=== PATIENT | male | born 1985 | race Caucasian/White ===

== ENCOUNTER 2019-10-07 19:22 | Inpatient (IN) | payer OTHER ==
[2019-10-07] MEDS ORDERED: ASPIRIN 81 MG PO STA (19:48)
[2019-10-07] MEDS ORDERED: LABETALOL 5 MG/ML VIAL MDV IVP STA ×2 (19:49→20:22)
[2019-10-07] MEDS ORDERED: SODIUM CHLORIDE 0.9% 500 ML 500 ML IV ONE (19:49)
--- NOTE | 2019-10-07 19:56 | ED ---
Chest Pain HPI - General Chief Complaint: Chest Pain Stated Complaint: Shortness of Breath, Chest Pain Time Seen by Provider: 10/07/19 19:44 Source: patient, RN notes reviewed Mode of arrival: wheelchair Limitations: no limitations - History of Present Illness Initial Comments: This a 33-year-old male presents emergency room she went to chest pain or sh ortness of breath. Patient states his symptoms and worsening last 2-3 days. Patient is some/chest pain no back pain on the usual states is chronic back pain. Patient states that his exertional dyspnea. Patient also has some resting dyspnea. Patient has no prior lung disease. Patient does admit that he has uncontrolled hypertension he used to be on 3 blood pressure medications including lisinopril, amlodipine and chlorthalidone, patient states she has not taken these in a while. Patient has no other prior cardiac disease no history of hyperlipidemia. Patient denies any family heart history. Patient denies any nausea vomiting states he does have some mild abdominal discomfort that she just feels bloated. Patient - Related Data Home Medications Medication Instructions Recorded Confirmed HYDROcodone/APAP 5-325MG [[place] 1 tab PO BID PRN 10/07/19 10/07/19 5-325] Kratom 5 cap PO TID 10/07/19 10/07/19 Allergies Allergy/AdvReac Type Severity Reaction Status Date / Time No Known Allergies Allergy Verified 10/07/19 21:14 Review of Systems ROS Statement: Those systems with pertinent positive or pertinent negative responses have been documented in the HPI. ROS Other: All systems not noted in ROS Statement are negative. EKG Findings - EKG Comments: EKG Findings:: EKG performed at 19:49 sinus tachycardia rate of 1:15 [place] 148 QRS 104 QT/QTC 362/500 Past Medical History Past Medical History: Hypertension History of Any Multi-Drug Resistant Organisms: None Reported Past Surgical History: Back Surgery, Orthopedic Surgery Additional Past Surgical History / Comment(s): hand Past Psychological History: PTSD Smoking Status: Current every day smoker Past Alcohol Use History: Abuse, Daily Past Drug Use History: None Reported General Exam Limitations: no limitations General appearance: alert, in no apparent distress Head exam: Present: atraumatic, normocephalic, normal inspection Eye exam: Present: normal appearance, PERRL, EOMI. Absent: scleral icterus, conjunctival injection, periorbital swelling ENT exam: Present: normal exam, normal oropharynx, mucous membranes moist Neck exam: Present: normal inspection, full ROM. Absent: tenderness, meningismus, lymphadenopathy Respiratory exam: Present: normal lung sounds bilaterally. Absent: respiratory distress, wheezes, rales, rhonchi, stridor Cardiovascular Exam: Present: normal rhythm, tachycardia, normal heart sounds. Absent: systolic murmur, diastolic murmur, rubs, gallop, clicks GI/Abdominal exam: Present: soft, normal bowel sounds. Absent: distended, tenderness, guarding, rebound, rigid Neurological exam: Present: alert, oriented X3, CN II-XII intact Skin exam: Present: warm, dry, intact, normal color. Absent: rash Course Vital Signs 10/07/19 10/07/19 10/07/19 19:36 19:53 20:00 Temperature 97.8 F Pulse Rate 114 H 118 H Respiratory 24 28 H Rate Blood Pressure 280/160 229/162 O2 Sat by Pulse 97 Oximetry 10/07/19 10/07/19 10/07/19 20:02 20:07 20:15 Temperature Pulse Rate 96 91 88 Respiratory 17 Rate Blood Pressure 237/157 232/161 218/164 O2 Sat by Pulse 98 99 Oximetry 10/07/19 10/07/19 10/07/19 20:22 20:25 21:00 Temperature Pulse Rate 89 87 89 Respiratory 18 16 Rate Blood Pressure 222/65 198/151 188/139 O2 Sat by Pulse 98 96 Oximetry 10/07/19 21:45 Temperature Pulse Rate 98 Respiratory 18 Rate Blood Pressure 197/137 O2 Sat by Pulse 98 Oximetry Critical Care Time Critical Care Time: Yes Total Critical Care Time: 35 Critical Care Time: Total of 35 minutes of critical care time were used to initially evaluated patient, reviewed by it, past medical history, ordered labs, EKG, x-ray, chest CT. Patient found to be in hypertensive emergency. Initial blood pressure control was ordered with labetalol push 20 mg, , pain control ordered. An EKG did not reveal any acute changes some chronic changes noted. Patient was sent for CT prior to lab work. Patient found to be in acute renal failure mostly related to supplemental use, uncontrolled hypertension. Patient was started labetalol drip. Patient case discussed with addiction therapist ICU boarder machine who agrees for admission case discussed with the admitting case picker Dr. cavazos. Patient will be admitted with cardiology consult, neurology consult. Disposition Clinical Impression: Chest pain, Acute renal failure, Hypertensive emergency, Acute CHF, Hyponatremia, Hypokalemia, NSTEMI (non-ST elevated myocardial infarction) Disposition: ADMITTED IP TO THIS HOSP Condition: Serious Referrals: None,Stated [Primary Care Provider] - 1-2 days
[2019-10-07] MEDS ORDERED: ONDANSETRON 4 MG/2 ML VIAL IVP STA (20:26)
[2019-10-07] MEDS ORDERED: MORPHINE SULFATE 4 MG/ML SYRINGE IVP STA (20:26)
[2019-10-07 20:29] LABS: Basophils % (A) 0 %; Eosinophils # (A) 0.1 k/uL (0-0.7); Eosinophils % (A) 1 %; HCT 35.7 % (39.0-53.0); HGB 12.6 gm/dL (13.0-17.5); Lymphocytes # (A) 0.8 k/uL (1.0-4.8); Lymphocytes % (A) 6 %; MCH 30.1 pg (25.0-35.0); MCHC 35.3 g/dL (31.0-37.0); MCV 85.3 fL (80.0-100.0); Mean Platelet Volume 8.3; Monocytes # (A) 0.6 k/uL (0-1.0); Monocytes % (A) 4 %; Neutrophils % (A) 88 %; Platelet Count 122 k/uL (150-450); RBC 4.19 m/uL (4.30-5.90); RDW 14.9 % (11.5-15.5); WBC 13.6 k/uL (3.8-10.6)
[2019-10-07 20:31] LABS: Albumin 3.6 g/dL (3.5-5.0); Calcium 8.6 mg/dL (8.4-10.2); Magnesium 2.1 mg/dL (1.6-2.3); Potassium 2.9 mmol/L (3.5-5.1); Total Bilirubin 1.1 mg/dL (0.2-1.3); Total Protein 6.1 g/dL (6.3-8.2)
[2019-10-07 20:43] LABS: INR 0.9 (<1.2); Partial Thromboplastin Time 23.6 sec (22.0-30.0); Prothrombin Time 9.7 sec (9.0-12.0)
[2019-10-07 20:46] LABS: D-Dimer 2.36 mg/L FEU (<0.60)
--- NOTE | 2019-10-07 20:47 | XR ---
EXAMINATION TYPE: XR chest 1V portable DATE OF EXAM: 10/07/2019 COMPARISON: 08/19/2010 HISTORY: Chest pain and short of breath TECHNIQUE: FINDINGS: Heart is enlarged. There is some pulmonary interstitial edema. There are chest leads. Bony thorax is intact. IMPRESSION: There is new pulmonary interstitial edema compared to old exam and could be acute congest lilia heart failure. Heart is increased compared to old exam.
--- NOTE | 2019-10-07 21:09 | CT ---
EXAMINATION TYPE: CT chest angio for PE DATE OF EXAM: 10/07/2019 COMPARISON: None HISTORY: UPPER BACK AND CHEST PAIN CT DLP: 659.2 mGycm Automated exposure control for dose reduction was used. CONTRAST: Performed with IV Contrast, patient injected with 80 mL of Isovue 370. There are 3-D post processed images. There are mild to moderate bilateral pleural effusions. Heart is enlarged. There is mild pulmonary in terstitial edema with groundglass interstitial density. There is no pericardial effusion. There are n o hilar masses. There is no mediastinal adenopathy. There is normal contrast opacification of the pul monary arteries. There are no filling defects. There are small calcified splenic granulomata. Thoraci c aorta appears normal. There is no aneurysm or dissection. The bony thorax is intact. IMPRESSION: No evidence of pulmonary embolism. Cardiomegaly with pleural effusions and pulmonary interstitial maximiliano ma probably due to congestive heart failure.
[2019-10-07] MEDS ORDERED: NITROGLYCERIN-D5W PMX 50 MG in DEXTROSE/WATER 1 250ML.BAG IV ONE (21:16)
[2019-10-07] MEDS ORDERED: FUROSEMIDE 10 MG/ML 2 ML VIAL IV ONE (21:17)
[2019-10-07] MEDS ORDERED: LABETALOL 200 MG in SODIUM CHLORIDE 0.9% 160 ML IV ONE (21:55)
[2019-10-07] MEDS ORDERED: POTASSIUM CHLORIDE ER 20 MEQ TAB.ER PO STA (22:01)
[2019-10-07] MEDS ORDERED: ACETAMINOPHEN TAB 325 MG TAB PO PRN (22:02)
[2019-10-07] MEDS ORDERED: NALOXONE 0.4 MG/ML 1 ML VIAL IV PRN (22:02)
[2019-10-07] MEDS ORDERED: HEPARIN SODIUM,PORCINE 5,000 UNIT/ML 1 ML VIAL IV PRN (22:05)
[2019-10-07] MEDS ORDERED: HEPARIN SODIUM,PORCINE 5,000 UNIT/ML 1 ML VIAL IV ONE (22:05)
[2019-10-07] MEDS ORDERED: HEPARIN SOD,PORK IN 0.45% NACL 25,000 UNIT in 0.45% NACL 1 250ML.BAG IV SCH (22:15)
[2019-10-07 23:08] LABS: Glucose,Whole Blood 108 mg/dL (75-99)
--- NOTE | 2019-10-08 00:26 | US ---
EXAMINATION TYPE: US renals and bladder DATE OF EXAM: 10/08/2019 COMPARISON: NONE CLINICAL HISTORY: dianna. DIANNA, hypertension. EXAM MEASUREMENTS: Right Kidney: 11.3 x 5.4 x 5.4 cm Left Kidney: 11.8 x 5.9 x 5.2 cm Right Kidney: Appears hyperechoic and to have a lobulated contour. Anechoic area seen medially-minima l hydro. Left Kidney: Appears slightly hyperechoic. Anechoic area seen measurin.8 x 1.0 x 0.6 cm. Renal p annelise appears prominent. Bladder: Appears anechoic. Bilateral Jets seen: Left jet seen during observation of bladder. *Incidental findings: Gallbladder appears distended measuring 10.2 cm in length and 4.9 cm in width. Internal echoes are seen. Wall measures 2.4 mm. There appears to be hyperechoic foci scattered throughout the spleen. IMPRESSION: There is mild right-sided hydronephrosis. There is dilated gallbladder that is suggestive of cholecys titis. Left side ureteral jet is seen. No right-sided ureteral jet was seen during the exam. Right-sided marianna al obstruction is possible.
[2019-10-08 03:58] LABS: Ferritin 526.1 ng/mL (22.0-322.0)
[2019-10-08 04:36] LABS: Basophils % (A) 0 %; Eosinophils # (A) 0.2 k/uL (0-0.7); Eosinophils % (A) 2 %; HCT 29.7 % (39.0-53.0); HGB 10.5 gm/dL (13.0-17.5); Lymphocytes # (A) 1.3 k/uL (1.0-4.8); Lymphocytes % (A) 15 %; MCH 31.1 pg (25.0-35.0); MCHC 35.5 g/dL (31.0-37.0); MCV 87.6 fL (80.0-100.0); Mean Platelet Volume 8.5; Monocytes # (A) 0.4 k/uL (0-1.0); Monocytes % (A) 5 %; Neutrophils # (A) 6.3 k/uL (1.3-7.7); Neutrophils % (A) 77 %; RBC 3.39 m/uL (4.30-5.90); RDW 14.8 % (11.5-15.5); WBC 8.2 k/uL (3.8-10.6)
[2019-10-08 05:08] LABS: Albumin 2.8 g/dL (3.5-5.0); Calcium 8.2 mg/dL (8.4-10.2); Magnesium 2.2 mg/dL (1.6-2.3); Total Bilirubin 0.7 mg/dL (0.2-1.3)
[2019-10-08 05:12] LABS: Platelet Count 91 k/uL (150-450)
[2019-10-08] MEDS ORDERED: Potassium Replacement Protocol 1 EACH MISC MISCELLANE PRN (06:07)
[2019-10-08] MEDS: POTASSIUM CHLORIDE ER 20 MEQ TAB.ER PO SCH (07:13)
[2019-10-08] MEDS: amLODIPine 10 MG TAB PO SCH (08:29)
[2019-10-08] MEDS: METOPROLOL TARTRATE 25 MG TAB PO SCH ×2 (08:29→20:29)
[2019-10-08] MEDS: PANTOPRAZOLE 40 MG/10 ML VIAL IV SCH (08:29)
[2019-10-08] MEDS: SODIUM CHLORIDE 0.45% 1,000 ML IV SCH (08:30)
[2019-10-08] MEDS: LABETALOL 200 MG in SODIUM CHLORIDE 0.9% 160 ML IV SCH ×2 (08:56→11:10)
[2019-10-08] MEDS: hydrALAZINE HCL 50 MG TAB PO SCH ×3 (09:40→23:34)
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
[2019-10-08 10:38] LABS: Glucose,Whole Blood 105 mg/dL (75-99)
[2019-10-08] MEDS ORDERED: POTASSIUM CHLORIDE ER 10 MEQ TAB.ER.PRT PO STA (10:43)
--- NOTE | 2019-10-08 11:13 | P.NPCON ---
History of Present Illness - Reason for Consult accelerated hypertension - History of Present Illness Reason for presentation: Acute kidney injury History of present illness: Patient is a 33-year-old male seen in renal consultation for acute kidney injury. Patient's creatinine was 3.18 on admission and is stable to 3.15 today. Unknown baseline renal function. Patient denies any personal history of kidney disease. Patient states he does have high blood pressure and was maintained on 3 antihypertensives which she stopped taking about 3 months ago. Patient states he hasn't seen a physician in the last few months either. He presented to the hospital with worsening shortness of breath going on for the last few days. He denies any edema. Denies vomiting or diarrhea. He denies hematuria but states urine has been dark. Patient's blood pressure on admission was over 200 systolic. He was maintained on labetalol drip. Labetalol drip has now been discontinued. He is maintained on oral and amlodipine, hydralazine and metoprolol. he did receive IV contrast dye on October [address] of the chest revealed no evidence of pulmonary embolism. Kidney ultrasound revealed normal sized kidneys without any evidence of hydronephrosis. denies chest pain. He does admit to taking Motrin 2-3 tablets daily for the last few months for his low back pain. No history of diabetes. Denies family history of renal disease. Vital signs are stable. General: The patient appeared well nourished and normally developed. HEENT: Head exam is unremarkable. Neck is without jugular venous distension. LUNGS: Lungs are clear to auscultation and percussion. Breath sounds decreased. HEART: Rate and Rhythm are regular. ABDOMEN: Abdominal exam reveals normal bowel sounds. Non-tender and non- distended. EXTREMITITES: No clubbing, cyanosis, or edema. Past Medical History Past Medical History: Hypertension History of Any Multi-Drug Resistant Organisms: None Reported Past Surgical History: Back Surgery, Orthopedic Surgery Additional Past Surgical History / Comment(s): hand Past Anesthesia/Blood Transfusion Reactions: No Reported Reaction Past Psychological History: PTSD Smoking Status: Current every day smoker Past Alcohol Use History: Abuse, Daily Past Drug Use History: None Reported - Past Family History Father Family Medical History: CVA/TIA, Hypertension Medications and Allergies Home Medications Medication Instructions Recorded Confirmed Type HYDROcodone/APAP 5-325MG [[place] 1 tab PO BID PRN 10/07/19 10/07/19 History 5-325] Kratom 5 cap PO TID 10/07/19 10/07/19 History Allergies Allergy/AdvReac Type Severity Reaction Status Date / Time No Known Allergies Allergy Verified 10/07/19 21:14 Physical Exam Vitals: Vital Signs Temp Pulse Resp BP Pulse Ox 10/08/19 10:30 125/74 10/08/19 10:00 70 21 143/94 95 10/08/19 09:30 73 16 159/99 95 10/08/19 09:00 76 20 160/101 93 L 10/08/19 08:30 81 21 174/118 98 10/08/19 08:00 98.1 F 72 17 157/106 98 10/08/19 07:30 70 19 159/111 98 10/08/19 07:00 74 16 143/86 98 10/08/19 06:30 65 18 144/95 95 10/08/19 06:00 64 17 157/103 95 10/08/19 05:30 70 21 146/92 97 10/08/19 05:00 66 18 151/97 96 10/08/19 04:30 67 18 151/107 95 10/08/19 04:00 97.8 F 73 18 152/110 97 10/08/19 03:30 68 16 143/90 97 10/08/19 03:00 71 18 147/103 96 10/08/19 02:30 71 20 138/96 96 10/08/19 02:00 68 15 144/98 95 10/08/19 01:30 67 17 154/109 94 L 10/08/19 01:00 70 16 145/101 96 10/08/19 00:30 67 17 140/97 98 10/08/19 00:00 72 14 140/97 96 10/07/19 23:30 70 16 95 10/07/19 23:10 97.4 F L 74 13 170/110 91 L 10/07/19 22:44 98.2 F 85 16 172/122 94 L 10/07/19 22:35 85 16 172/122 94 L 10/07/19 22:25 98.2 F 93 18 190/132 94 L 10/07/19 22:00 96 18 202/146 96 10/07/19 21:45 98 18 197/137 98 10/07/19 21:00 89 16 188/139 96 10/07/19 20:25 87 18 198/151 98 10/07/19 20:22 89 222/65 10/07/19 20:15 88 17 218/164 99 10/07/19 20:07 91 232/161 98 10/07/19 20:02 96 237/157 10/07/19 20:00 229/162 10/07/19 19:53 118 H 28 H 280/160 10/07/19 19:36 97.8 F 114 H 24 97 Intake and Output 10/07/19 10/08/19 10/08/19 22:59 06:59 14:59 Intake Total 10 63.129 308 Output Total 1100 750 Balance 10 -1036.871 -442 Intake: IV 10 150 Invasive Line 1 10 Sodium Chloride 0.45% 1, 150 000 ml @ 75 mls/hr IV . [id number] [facility] Rx#:[id number] Intake, IV Titration 63.129 158 Amount Heparin Sod,Pork in 0.45% 63.129 NaCl 25,000 unit In 0.45 % NaCl 1 250ml.bag @ 9.18 UNITS/KG/HR 9.994 mls/hr IV .Q24H [facility] Rx#: [id number] Labetalol 200 mg In 158 Sodium Chloride 0.9% 160 ml @ 2 MG/MIN 120 mls/hr IV .Q1H40M [facility] Rx#: [id number] Output: Urine 1100 750 Other: Voiding Method Urinal # Voids 0 Weight 108.862 kg 110 kg Results - Lab Results Most recent lab results Calcium 8.2 mg/dL (8.4-10.2) L 10/08/19 03:59 Magnesium 2.2 mg/dL (1.6-2.3) 10/08/19 03:59 10/08/19 03:59 10/08/19 03:59 Assessment and Plan Plan: assessment: 1. Hypertensive emergency. Better controlled. 2. Hypokalemia from diuresis. 3. Hyponatremia. Slightly hypervolemic. 4. History of hypertension. Noncompliant with his home medications for the last 3 months. 5. Acute kidney injury secondary to nephrosclerosis and nonsteroidal use. He also received IV contrast dye on October 06. No schistocytes noted on differential. Creatinine 3.15 today. Unknown baseline renal function. No hydronephrosis noted on kidney ultrasound. Plan: Decrease normal saline to 50 mL an hour. Potassium being replaced. Check urinalysis. Check LDH and haptoglobin. Check renin and aldosterone levels, and plasma metanephrines. Check renal ultrasound with Doppler. Follow-up CT of the abdomen and pelvis. Follow-up echocardiogram. Case discussed with the attending psychiatrist. Thank you for the consultation. I will continue to follow the patient with you during his hospital stay.
--- NOTE | 2019-10-08 11:39 | P.CNPUL ---
History of Present Illness Consult date: 10/08/19 Reason for consult: dyspnea Chief complaint: Acute hypertensive emergency History of present illness: This is a 33-year-old male patient who was admitted yesterday to the ICU via emergency because of an acute hypertensive emergency. The patient is known to have long history of hypertension, and he hasn't been compliant his blood pressure medication. He states that his been placed on today's blood pressure medication and most recent BP medication has been a ALEISHA inhibitor, lisinopril, which he quit taking approximately 6 weeks ago. Note that the patient also drinks excess amount of caffeinated beverages including those with energy drinks which are high in sugar and caffeine content and he drinks at least 7 or 8 out of them on a daily basis. He also drinks coffee. He denies substance abuse. Denies having to use of any cocaine or any other street drugs. The patient came into the emergency department yesterday complaining of progressive worsening shortness of breath over a few days duration in addition to generalized weakness and minimal cough. He also had some mild chest discomfort centrally where the pain was around 2 out of 10 in severity radiating to the back and the neck area and he was also having some headaches and numbness in his upper extremities bilaterally without having any weakness. No blurred vision. No slurred speech. No focal neurological deficits. He had no increased swelling in lower extremities. No previous history of DVT or pulmonary embolism. He does not smoke. He chews tobacco. His initial blood pressure in the ED was 280/160 and he was initially placed on nitroglycerin drip. After I was contacted, I recommended labetalol drip that was utilized throughout the night and it was discontinued approximately 11 PM yesterday in the emergency department as the p atient's blood pressure responded nicely. Note that he had significant abnormalities in his blood work which included an abnormal renal function with a creatinine of 3.15, unsure if this is an acute or chronic. His CBC showed a component of thrombocytopenia with a platelet further dropped down to 91 this morning with a hemoglobin of 10.5 and a white cell count of 8.2K. The patient's proBNP level was 20,800. The patient had a CPK of 2155. LFTs have been within normal limits. D-dimer was at 2.3. Chest x-ray was consistent with CHF. EKG showed a sinus tachycardia with LVH. Based on all this, there was a concern of aortic dissection. The patient unfortunately was given a CT angiogram that showed no evidence of any dissection and aneurysm. There was better pleural effusion and interstitial edema consistent with CHF in addition to some cardiomegaly. There was also some questionable mild right-sided hydronephrosis on the ultrasound of the kidneys that showed no right-sided ureteral jets and there was also dilated gallbladder suggestive of cholecystitis. Nevertheless, the patient does not have any right upper quadrant pain, does not have any abnormalities in liver function tests. Based on the intake of contrast, I give the patient half-normal saline at rate of 75 mL an hour. Earlier this morning, I started the patient on Norvasc 10 mg and metoprolol 25 mg twice a day. C ardiology further so the patient and added hydralazine 50 mg every 8 hours. He is labetalol drip was again discontinued. Overall, is feeling better. Echocardiogram was done this morning and showed severe concentric LVH. LV function is been essentially within normal limits. No significant valvular abnormalities noted. No fever. No chills. No other complaints otherwise been altered mentation. Review of Systems Constitutional: Reports fatigue, Reports weakness Eyes: denies as per HPI, denies blurred vision, denies bulging eye, denies decreased vision, denies diplopia, denies discharge, denies dry eye, denies irritation, denies itching, denies pain, denies photophobia, denies loss of peripheral vision, denies loss of vision, denies tunnel vision/blind spots Ears: deny: decreased hearing, ear discharge, earache, tinnitus Ears, nose, mouth and throat: Denies headache, Denies sore throat Breasts: absent: as per HPI, gynecomastia Cardiovascular: Reports chest pain, Reports decreased exercise tolerance Respiratory: Reports as per HPI Gastrointestinal: Reports as per HPI Genitourinary: Reports as per HPI Musculoskeletal: Reports as per HPI Musculoskeletal: absent: ankle pain, ankle stiffness, ankle swelling Integumentary: Reports as per HPI Neurological: Reports as per HPI, Reports weakness Psychiatric: Reports as per HPI Endocrine: Reports as per HPI Hematologic/Lymphatic: Reports as per HPI Allergic/Immunologic: Reports as per HPI Past Medical History Past Medical History: Hypertension History of Any Multi-Drug Resistant Organisms: None Reported Past Surgical History: Back Surgery, Orthopedic Surgery Additional Past Surgical History / Comment(s): hand Past Anesthesia/Blood Transfusion Reactions: No Reported Reaction Past Psychological History: PTSD Smoking Status: Current every day smoker Past Alcohol Use History: Abuse, Daily Past Drug Use History: None Reported - Past Family History Father Family Medical History: CVA/TIA, Hypertension Medications and Allergies Home Medications Medication Instructions Recorded Confirmed Type HYDROcodone/APAP 5-325MG [[place] 1 tab PO BID PRN 10/07/19 10/07/19 History 5-325] Kratom 5 cap PO TID 10/07/19 10/07/19 History Allergies Allergy/AdvReac Type Severity Reaction Status Date / Time No Known Allergies Allergy Verified 10/07/19 21:14 Physical Exam Vitals: Vital Signs Temp Pulse Resp BP Pulse Ox 10/08/19 11:00 74 16 125/74 97 10/08/19 10:30 125/74 10/08/19 10:00 70 21 143/94 95 10/08/19 09:30 73 16 159/99 95 10/08/19 09:00 76 20 160/101 93 L 10/08/19 08:30 81 21 174/118 98 10/08/19 08:00 98.1 F 72 17 157/106 98 10/08/19 07:30 70 19 159/111 98 10/08/19 07:00 74 16 143/86 98 10/08/19 06:30 65 18 144/95 95 10/08/19 06:00 64 17 157/103 95 10/08/19 05:30 70 21 146/92 97 10/08/19 05:00 66 18 151/97 96 10/08/19 04:30 67 18 151/107 95 10/08/19 04:00 97.8 F 73 18 152/110 97 10/08/19 03:30 68 16 143/90 97 10/08/19 03:00 71 18 147/103 96 10/08/19 02:30 71 20 138/96 96 10/08/19 02:00 68 15 144/98 95 10/08/19 01:30 67 17 154/109 94 L 10/08/19 01:00 70 16 145/101 96 10/08/19 00:30 67 17 140/97 98 10/08/19 00:00 72 14 140/97 96 10/07/19 23:30 70 16 95 10/07/19 23:10 97.4 F L 74 13 170/110 91 L 10/07/19 22:44 98.2 F 85 16 172/122 94 L 10/07/19 22:35 85 16 172/122 94 L 10/07/19 22:25 98.2 F 93 18 190/132 94 L 10/07/19 22:00 96 18 202/146 96 10/07/19 21:45 98 18 197/137 98 10/07/19 21:00 89 16 188/139 96 10/07/19 20:25 87 18 198/151 98 10/07/19 20:22 89 222/65 10/07/19 20:15 88 17 218/164 99 10/07/19 20:07 91 232/161 98 10/07/19 20:02 96 237/157 10/07/19 20:00 229/162 10/07/19 19:53 118 H 28 H 280/160 10/07/19 19:36 97.8 F 114 H 24 97 Intake and Output 10/07/19 10/08/19 10/08/19 22:59 06:59 14:59 Intake Total 10 63.129 458 Output Total 1100 750 Balance 10 -1036.871 -292 Intake: IV 10 300 Invasive Line 1 10 Sodium Chloride 0.45% 1, 300 000 ml @ 75 mls/hr IV . [id number] [facility] Rx#:[id number] Intake, IV Titration 63.129 158 Amount Heparin Sod,Pork in 0.45% 63.129 NaCl 25,000 unit In 0.45 % NaCl 1 250ml.bag @ 9.18 UNITS/KG/HR 9.994 mls/hr IV .Q24H [facility] Rx#: [id number] Labetalol 200 mg In 158 Sodium Chloride 0.9% 160 ml @ 2 MG/MIN 120 mls/hr IV .Q1H40M [facility] Rx#: [id number] Output: Urine 1100 750 Other: Voiding Method Urinal # Voids 0 Weight 108.862 kg 110 kg MThe patient appeared well nourished and normally developed. Vital signs as documented. Head exam is unremarkable. No scleral icterus or corneal arcus no cristy. Neck is without jugular venous distension, thyromegaly, or carotid bruits. Carotid upstrokes are brisk bilaterally. Lungs are clear to auscultation and percussion. Cardiac exam reveals the PMI to be normally sized and situated. Rhythm is regular. First and second heart sounds normal. The second heart sound is split and there is an S3 gallop. No murmurs, rubs or gallops. Abdominal exam reveals normal bowel sounds, no masses, no organomegaly and no aortic enlargement. Extremities are nonedematous and both femoral and pedal pulses are normal.Examination of the skin revealed no evidence of significant rashes, suspicious appearing nevi or other concerning lesions. Neurologically patient i s awake and alert and there is no focal neurological deficits. Results - Laboratory Findings CBC and BMP: 10/08/19 03:59 10/08/19 03:59 PT/INR, D-dimer PT 9.7 sec (9.0-12.0) 10/07/19 20:01 INR 0.9 (<1.2) 10/07/19 20:01 D-Dimer 2.36 mg/L FEU (<0.60) H 10/07/19 20:01 Abnormal lab findings: Abnormal Labs 10/07/19 10/07/19 10/07/19 20:01 20:01 20:01 WBC 13.6 H RBC 4.19 L Hgb 12.6 L Hct 35.7 L Plt Count 122 L Neutrophils # 12.0 H Lymphocytes # 0.8 L D-Dimer 2.36 H Sodium 127 L Potassium 2.9 L Chloride 94 L Carbon Dioxide 20 L BUN 55 H Creatinine 3.19 H Glucose 113 H POC Glucose (mg/dL) Calcium Ferritin AST 63 H ALT 72 H Lactate Dehydrogenase Creatine Kinase 2155 H* Troponin I C-Reactive Protein Total Protein 6.1 L Albumin HDL Cholesterol 10/07/19 10/07/19 10/07/19 20:01 20:01 23:07 WBC RBC Hgb Hct Plt Count Neutrophils # Lymphocytes # D-Dimer Sodium Potassium Chloride Carbon Dioxide BUN Creatinine Glucose POC Glucose (mg/dL) 108 H Calcium Ferritin 526.1 H AST ALT Lactate Dehydrogenase 2142 H Creatine Kinase Troponin I 0.605 H* C-Reactive Protein 18.0 H Total Protein Albumin HDL Cholesterol 10/08/19 10/08/19 10/08/19 03:59 03:59 03:59 WBC RBC 3.39 L Hgb 10.5 L Hct 29.7 L Plt Count 91 L Neutrophils # Lymphocytes # D-Dimer Sodium 128 L Potassium 3.0 L Chloride 96 L Carbon Dioxide BUN 55 H Creatinine 3.15 H Glucose POC Glucose (mg/dL) Calcium 8.2 L Ferritin AST ALT 58 H Lactate Dehydrogenase Creatine Kinase 1159 H* Troponin I 0.590 H* C-Reactive Protein Total Protein 5.0 L Albumin 2.8 L HDL Cholesterol 38 L 10/08/19 10:36 WBC RBC Hgb Hct Plt Count Neutrophils # Lymphocytes # D-Dimer Sodium Potassium Chloride Carbon Dioxide BUN Creatinine Glucose POC Glucose (mg/dL) 105 H Calcium Ferritin AST ALT Lactate Dehydrogenase Creatine Kinase Troponin I C-Reactive Protein Total Protein Albumin HDL Cholesterol - Diagnostic Findings Chest x-ray: image reviewed Assessment and Plan Plan: 1 acute hypertensive emergency in a patient with known history of hypertension 2 acute chest pain, with limited troponin leak, likely secondary to hypertensive emergency. I highly doubt a underlying non-STEMI. 3 acute diastolic heart failure related to hypertensive heart disease and the patient has severe concentric left ventricular hypertrophy. ProBNP level at time of admission was above 20,000 and the patient had small bilateral pleural effusion and interstitial edema. This is related to above. 4 acute kidney injury secondary to hypertensive emergency. Doubt microangiopathy although this remains a concern that the patient has developed also some anemia and thrombocytopenia in addition to an acute kidney injury. No altered mentation. No fever. No schistocytes on the peripheral smear. Watch for contrast nephropathy as the patient was given a CT angiogram and aortic dissection was ruled out. 5 thrombocytopenia and the plated count is down to 91 6 hyponatremia 7 for compliance to blood pressure medications 8 questionable right-sided hydronephrosis 9 asymptomatic gallbladder distention without evidence of any cholecystitis 10 chronic back pain 11 excessive utilization of caffeinated beverages Plan Discontinue the labetalol drip BP control with a combination of Norvasc, metoprolol and hydralazine Check ultrasound the kidneys with vascular Dopplers of the renal arteries rule out renal artery stenosis Check metanephrine levels and his serum in addition to renin and aldosterone levels Check final echocardiogram report Monitor the renal function Continue gentle hydration with half-normal saline at the rate of 75 mL an hour Follow-up CAT scan of the abdomen and pelvis ordered to rule out any adrenal lesions or masses, including to his hypertension addition to evaluation of his possible hydronephrosis of the right kidney Check UA Keep the patient ICU for 24 hours We'll continue to follow
--- NOTE | 2019-10-08 11:46 | ECHOF ---
Referral Reason:Rule out heart disease MEASUREMENTS -------- HEIGHT: 180.3 cm WEIGHT: 109.8 kg BP: 157/103 RVIDd: 3.8 cm (< 3.3) IVSd: 2.3 cm (0.6 - 1.1) LVIDd: 4.8 cm (3.9 - 5.3) LVPWd: 2.2 cm (0.6 - 1.1) IVSs: 2.6 cm LVIDs: 3.4 cm LVPWs: 3.1 cm LAESV Index (A-L): 40.15 ml/m Ao Diam: 3.2 cm (2.0 - 3.7) AV Cusp: 2.2 cm (1.5 - 2.6) MV EXCURSION: 18.438 mm (> 18.000) MV EF SLOPE: 90 mm/s (70 - 150) EPSS: 1.3 cm MV E Luis Fernando: 1.40 m/s MV DecT: 117 ms MV A Luis Fernando: 0.53 m/s MV E/A Ratio: 2.66 RAP: 5.00 mmHg RVSP: 67.19 mmHg FINDINGS -------- Sinus rhythm. This was a technically difficult study with suboptimal apical views. The left ventricular size is normal. There is severe concentric left ventricular hypertrophy. Ove rall left ventricular systolic function is low-normal with, an EF 50 %. Mitral Doppler inflow patter n suggests diastolic filling abnormality 18.03. The right ventricle is mild to moderately enlarged. LA is moderately dilated 34-39 ml/m2 The right atrial size is normal. 5.0mg of Lumason was utilized for enhancement of images Interatrial and interventricular septum intact. There is no evidence of aortic regurgitation. There is no evidence of aortic stenosis. Moderate mitral regurgitation is present. Moderate tricuspid regurgitation present. There is moderate pulmonary hypertension. The right alessandro tricular systolic pressure, as measured by Doppler, is 67.19mmHg. There is no pulmonic regurgitation present. The aortic root size is normal. Normal inferior vena cava with normal inspiratory collapse consistent with estimated right atrial pre ssure of 5 mmHg. There is no pericardial effusion. CONCLUSIONS -------- 1. Sinus rhythm. 2. This was a technically difficult study with suboptimal apical views. 3. The left ventricular size is normal. 4. There is severe concentric left ventricular hypertrophy. 5. Overall left ventricular systolic function is low-normal with, an EF 50 %. 6. Mitral Doppler inflow pattern suggest diastolic filling abnormality 18.03. 7. The right ventricle is mild to moderately enlarged. 8. LA is moderately dilated 34-39 ml/m2 9. The right atrial size is normal. 10. 5.0mg of Lumason was utilized for enhancement of images 11. Interatrial and interventricular septum intact. 12. There is no evidence of aortic regurgitation. 13. There is no evidence of aortic stenosis. 14. Moderate mitral regurgitation is present. 15. Moderate tricuspid regurgitation present. 16. There is moderate pulmonary hypertension. 17. The right ventricular systolic pressure, as measured by Doppler, is 67.19mmHg. 18. There is no pulmonic regurgitation present. 19. The aortic root size is normal. 20. Normal inferior vena cava with normal inspiratory collapse consistent with estimated right atrial pressure of 5 mmHg. 21. There is no pericardial effusion. MINE PATROL: Yulissa Thompson RDCS
--- NOTE | 2019-10-08 12:43 | CONS ---
CONSULTATION CHIEF COMPLAINT: Severe uncontrolled hypertension. HISTORY OF PRESENT ILLNESS: Mr. Shields is a 33-year-old gentleman with history of hypertension for more than 10 years. Stopped taking his medications during the coronavirus pandemic due to inability to get into his primary care physician, came to hospital with severe uncontrolled hypertension. On his initial presentation, blood pressures were in the 200s to 230/160. He had been treated with labetalol and blood pressures are better controlled this morning at 150s over 106. The patient also had chest discomfort, had a CTA that is negative. His thoracic aorta does not show any aneurysm or dissection. Overall, he is feeling better from the time he came in. At the moment, he is on IV labetalol and I am starting him on hydralazine 50 t.i.d. and continue the Lopressor and Norvasc that he is on. The patient has renal insufficiency with elevated creatinine. His EKG shows changes of left ventricular hypertrophy. I am going to obtain an echocardiogram to assess LV function. I am going to add Catapres if I have to blood pressure control. I am not sure beta ihsan is the best of medications that his heart rate as he may develop bradycardia. PAST MEDICAL HISTORY: Past medical history is significant for hypertension. MEDICATIONS: Include [place]. ALLERGIES: No known drug allergies. FAMILY HISTORY: Negative for premature coronary artery disease. SOCIAL HISTORY: Negative for current smoking, EtOH abuse or drug abuse. REVIEW OF SYSTEMS: HEENT is unremarkable. CARDIAC as described above. RESPIRATORY as described above. GI negative. GENITOURINARY negative. ALLERGY none. IMMUNOLOGICAL: Negative. SKIN negative. MUSCULOSKELETAL: Significant for arthritis., PSYCHOSOCIAL negative. ENDOCRINE negative. DERM negative. CONSTITUTIONAL negative. ONCOLOGICAL negative. SOFTWARE TEAM LEADER negative. Rest of the system review is not relevant. EXAM: Patient is comfortable at rest. Heart rate is 78 beats per minute, blood pressure is 160/101, respiratory rate 18. NECK: There is no jugular venous distention. Carotid upstroke is normal. There is no bruit. CHEST exam reveals good air entry bilaterally. HEART exam reveals first and second heart sounds and S4 is heard. ABDOMEN: Soft. EXAM of the EXTREMITIES did not reveal any edema. Peripheral pulses are felt. LABORATORY DATA: Labs showed that the hemoglobin is 10.5, platelet count is 91. D-dimer is 2.3. BUN is 55, creatinine is 3.1. Tropes are mildly elevated. BNP is 20,800. CK is elevated. Stroke is 0.6 BUN is 55, creatinine is 3.1. EKG shows sinus rhythm with changes of left ventricular hypertrophy. ASSESSMENT: 1. Severe uncontrolled hypertension. 2. Acute renal failure secondary to severe uncontrolled hypertension. 3. Elevated troponin secondary to renal failure. This patient did not have myocardial infarction. 4. Elevated D-dimer. CT of the lungs is negative for pulmonary embolism. 5. Elevated BNP probably secondary to acute diastolic heart failure. PLAN: We will control the blood pressures optimally. Will give him a dose of IV Lasix and we will obtain a 2D echo and will consult Nephrology. MMODL / IJN: [id number] /
[2019-10-08 12:54] LABS: Appearance,Urine Clear (Clear); Bacteria,Urine Rare /hpf; Bilirubin,Urine Negative (Negative); Blood,Urine Small (Negative); Color,Urine Yellow; Glucose,Urine (UA) Negative (Negative); Ketones,Urine Negative (Negative); Leukocyte Esterase,Urine Negative (Negative); Nitrite,Urine Negative (Negative); PH, Urine 5.5 (5.0-8.0); Protein,Urine 2+ (Negative); RBC,Urine 27 /hpf (0-5); Urobilinogen,Urine <2.0 mg/dL (<2.0); WBC,Urine 2 /hpf (0-5)
--- NOTE | 2019-10-08 14:16 | CT ---
EXAMINATION TYPE: CT abdomen pelvis wo con DATE OF EXAM: 10/08/2019 COMPARISON: Ultrasound 10/07/2019 HISTORY: Rt hydronephrosis CT DLP: 1140 mGycm Automated exposure control for dose reduction was used. TECHNIQUE: Helical acquisition of images from the lung bases through the pelvis. FINDINGS: There are bilateral small pleural effusions. The heart is enlarged. Basilar dependent atele ctatic changes are present. Some scattered areas of groundglass opacity are noted. Lack of contrast c ould compromise sensitivity. LUNG BASES: No significant abnormality is appreciated. AORTA: No significant abnormality is appreciataed. LIVER/GB: No some mild increased dependent attenuation within the gallbladder may be due to tumefacti ve sludge, the liver shows no mass. PANCREAS: No significant abnormality is seen. SPLEEN: Scattered calcifications are consistent with old granulomatous disease. Spleen is enlarged. ADRENALS: No significant abnormality is seen. KIDNEYS: The mild prominence of the renal pelvis is again noted, the collecting systems of the kidney s show contrast material bilaterally, no evident ureteral obstruction. REPRODUCTIVE ORGANS: No significant abnormality is seen. URINARY BLADDER: Contrast material is present within the urinary bladder.. BOWEL: Some diverticular changes noted within the colon, there is no bowel obstruction, some retaine d contrast material present. Some colonic wall thickening is present along the a sending colon, small bowel wall thickening is also present in the ileum. Some inflammatory change present in the pericolo gill fat along the right paracolic gutter. FREE AIR: No Free Air is visible. ASCITES: Small amount of free fluid noted within the pelvis.. PELVIC ADENOPATHY: None visualized. RETROPERITONEAL ADENOPATHY: No Retroperitoneal Adenopathy visible. OSSEOUS STRUCTURES: Laminectomies are noted at L4 and L5. There is degenerative disc change present at L4-5. IMPRESSION: CORRELATE FOR CONGESTIVE HEART FAILURE, PROBABLE BASILAR ATELECTASIS, CORRELATE TO EXCLUDE PNEUMONIA, THERE ARE SMALL PLEURAL EFFUSIONS. There is persistent excretion of radiographic contrast in the marianna al collecting systems. No evident ureteral obstruction. Correlate for enteritis, colitis. Splenomegal y, old granulomatous disease. Postop changes.
[2019-10-08] MEDS: MORPHINE SULFATE 4 MG/ML SYRINGE IV PRN ×3 (14:45→23:45)
[2019-10-08 15:03] LABS: Hemoglobin A1C 4.3 % (4.0-6.0)
[2019-10-08] MEDS: HEPARIN SODIUM,PORCINE 5,000 UNIT/ML 1 ML VIAL SQ SCH ×2 (16:10→23:34)
[2019-10-09] MEDS: MORPHINE SULFATE 4 MG/ML SYRINGE IV PRN ×6 (04:12→23:21)
[2019-10-09] MEDS: SODIUM CHLORIDE 0.45% 1,000 ML IV SCH (04:13)
[2019-10-09 06:04] LABS: Basophils % (A) 0 %; Eosinophils # (A) 0.3 k/uL (0-0.7); Eosinophils % (A) 3 %; HCT 33.1 % (39.0-53.0); HGB 10.7 gm/dL (13.0-17.5); Lymphocytes # (A) 1.4 k/uL (1.0-4.8); Lymphocytes % (A) 17 %; MCH 29.4 pg (25.0-35.0); MCHC 32.5 g/dL (31.0-37.0); MCV 90.7 fL (80.0-100.0); Monocytes # (A) 0.5 k/uL (0-1.0); Monocytes % (A) 6 %; Neutrophils # (A) 6.1 k/uL (1.3-7.7); Neutrophils % (A) 73 %; Platelet Count 109 k/uL (150-450); RBC 3.65 m/uL (4.30-5.90); RDW 15.1 % (11.5-15.5); WBC 8.4 k/uL (3.8-10.6)
[2019-10-09] MEDS ORDERED: LABETALOL 5 MG/ML VIAL MDV IVP STA (06:09)
[2019-10-09 06:27] LABS: Albumin 2.9 g/dL (3.5-5.0); Calcium 8.5 mg/dL (8.4-10.2); Magnesium 2.5 mg/dL (1.6-2.3); Potassium 3.8 mmol/L (3.5-5.1); Total Bilirubin 0.5 mg/dL (0.2-1.3); Total Protein 5.2 g/dL (6.3-8.2)
[2019-10-09] MEDS ORDERED: POTASSIUM CHLORIDE ER 20 MEQ TAB.ER PO STA (06:40)
[2019-10-09] MEDS ORDERED: LABETALOL 5 MG/ML VIAL MDV IVP PRN (08:32)
--- NOTE | 2019-10-09 09:25 | US ---
EXAMINATION TYPE: US renal doppler DATE OF EXAM: 10/09/2019 COMPARISON: NONE CLINICAL HISTORY: yunier, htn. MEASUREMENTS: RENAL SIZE: Rt Kidney: 10.7 x 4.5 x 5.2cm Lt Kidney: 11.8 x 5.3 x 5.1cm RESISTANCE INDEX Right: 0.65 Left: 0.57 RA/AO RATIO (< 3.5 ) Right: 0.9 Left: 0.9 RA VELOCITY ( < 180 cm/s) Right: 77 Left: 88 Severe overlying midline bowel gas, technically difficult study with very limited visualization of th e aorta. Inferior pole somewhat obscured bilaterally. No evidence of renal artery stenosis. Mid aorta severely limited. GB sludge noted in image 26. IMPRESSION: 1. Limited exam due to overlying bowel gas. No diagnostic evidence of renal artery stenosis. Increase d echogenicity of the renal cortex suggest chronic medical renal disease. 2. Suggestion of sludge within the gallbladder. 3. Difficult to see the mid abdominal aorta this is poorly visualized due to bowel gas. Abnormality w ithin the abdominal aorta including a stenosis or dissection is not excluded by this scan. Recommend contrast CT scan. Recent CT scan demonstrated no evidence of aneurysm, however, the exam is performed without contrast. Report called to the patient's nurse.
--- NOTE | 2019-10-09 09:46 | CT ---
EXAMINATION TYPE: CT brain wo con DATE OF EXAM: 10/09/2019 COMPARISON: 08/19/2010 HISTORY: Visual changes CT DLP: 1127.4 mGycm. Automated Exposure Control for Dose Reduction was Utilized. TECHNIQUE: CT scan of the head is performed without contrast. FINDINGS: There is no acute intracranial hemorrhage, mass effect, or midline shift identified. The ventricles and sulci are within normal limits in size. The globes are intact and the visualized sin uses are clear. IMPRESSION: No acute intracranial hemorrhage, mass effect, or midline shift is seen.
[2019-10-09] MEDS: PANTOPRAZOLE 40 MG/10 ML VIAL IV SCH (09:50)
[2019-10-09] MEDS: HEPARIN SODIUM,PORCINE 5,000 UNIT/ML 1 ML VIAL SQ SCH ×3 (09:50→23:16)
[2019-10-09] MEDS: hydrALAZINE HCL 50 MG TAB PO SCH ×2 (09:50→16:19)
[2019-10-09] MEDS: METOPROLOL TARTRATE 25 MG TAB PO SCH (09:50)
[2019-10-09] MEDS: amLODIPine 10 MG TAB PO SCH (09:52)
[2019-10-09] MEDS ORDERED: METOPROLOL TARTRATE 25 MG TAB PO STA (10:25)
[2019-10-09] MEDS ORDERED: hydrALAZINE HCL 50 MG TAB PO STA (10:25)
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
--- NOTE | 2019-10-09 11:24 | P.PN ---
Subjective Progress Note Date: 10/09/19 This is a 33-year-old male patient who was admitted yesterday to the ICU via emergency because of an acute hypertensive emergency. The patient is known to have long history of hypertension, and he hasn't been compliant his blood pressure medication. He states that his been placed on today's blood pressure medication and most recent BP medication has been a ALEISHA inhibitor, lisinopril, which he quit taking approximately 6 weeks ago. Note that the patient also drinks excess amount of caffeinated beverages including those with energy drinks which are high in sugar and caffeine content and he drinks at least 7 or 8 out of them on a daily basis. He also drinks coffee. He denies substance abuse. Denies having to use of any cocaine or any other street drugs. The patient came into the emergency department yesterday complaining of progressive worsening shortness of breath over a few days duration in addition to generalized weakness and minimal cough. He also had some mild chest discomfort centrally where the pain was around 2 out of 10 in severity radiating to the back and the neck area and he was also having some headaches and numbness in his upper extremities bilaterally without having any weakness. No blurred vision. No slurred speech. No focal neurological deficits. He had no increased swelling in lower extremities. No previous history of DVT or pulmonary embolism. He does not smoke. He chews tobacco. His initial blood pressure in the ED was 280/160 and he was initially placed on nitroglycerin drip. After I was contacted, I recommended labetalol drip that was utilized throughout the night and it was discontinued approximately 11 PM yesterday in the emergency department as the patient's blood pressure responded nicely. Note that he had significant abnormalities in his blood work which included an abnormal renal function with a creatinine of 3.15, unsure if this is an acute or chronic. His CBC showed a component of thrombocytopenia with a platelet further dropped down to 91 this morning with a hemoglobin of 10.5 and a white cell count of 8.2K. The patient's proBNP level was 20,800. The patient had a CPK of 2155. LFTs have been within normal limits. D-dimer was at 2.3. Chest x-ray was consistent with CHF. EKG showed a sinus tachycardia with LVH. Based on all this, there was a concern of aortic dissection. The patient unfortunately was given a CT angiogram that showed no evidence of any dissection and aneurysm. There was better pleural effusion and interstitial edema consistent with CHF in addition to some cardiomegaly. There was also some questionable mild right-sided hydronephrosis on the ultrasound of the kidneys that showed no right-sided ureteral jets and there was also dilated gallbladder suggestive of cholecystitis. Nevertheless, the patient does not have any right upper quadrant pain, does not have any abnormalities in liver function tests. Based on the intake of contrast, I give the patient half-normal saline at rate of 75 mL an hour. Earlier this morning, I started the patient on Norvasc 10 mg and metoprolol 25 mg twice a day. Cardiology further so the patient and added hydralazine 50 mg every 8 hours. He is labetalol drip was again discontinued. Overall, is feeling better. Echocardiogram was done this morning and showed severe concentric LVH. LV function is been essentially within normal limits. No significant valvular abnormalities noted. No fever. No chills. No other complaints otherwise been altered mentation. On today's evaluation of 10/09/2019, the patient is being seen for a follow-up. We noted the patient's blood pressure was well-controlled till around 4 AM this morning with a blood pressure gradually went up. The patient has not taken his oral medication. At around 7:00 this morning, given a dose of labetalol 20 mg IV push. I asked the nurses to restart the oral medication which included a combination of metoprolol, hydralazine and Norvasc. BP is being monitored closely. Meanwhile, the patient reported some change in his vision. He was seeing dark black spots in the upper part of his visual goins bilaterally. For that reason, a CAT scan of the brain will be ordered to rule out the possibility of any stroke. Meanwhile, the patient is still being investigated regarding his hypertension. Serum metanephrine, renin and aldosterone levels are still pending for now. Ultrasound the kidneys was done looking for his underlying renal artery structures and rule out the possibility of stenosis. His creatinine today is around 3.6 and there is also concern of contrast nephropathy and the patient is receiving half-normal saline at the rate of 50 mL an hour. He is producing adequate amount of urine output. No chest pain. No palpitations. Echo was done and showed severe LVH and preserved LV function. Ultrasound of the kidneys showed no clear evidence of any renal artery stenosis. There was nondiagnostic in this regard. There was evidence of sludge within the gallbladder. The infrarenal abdominal aortic structures cannot be well visualized. Nevertheless, the patient a previous CAT scan of the abdomen and pelvis showing no significant abnormalities and the wart and this was a noncontrast study. Objective - Vital Signs Vital signs: Vital Signs Temp 98.3 F 10/09/19 04:00 Pulse 72 10/09/19 11:00 Resp 15 10/09/19 11:00 BP 149/85 10/09/19 11:00 Pulse Ox 94 L 10/09/19 11:00 Intake & Output 10/08/19 10/09/19 10/09/19 18:59 06:59 18:59 Intake Total 883 1300 250 Output Total 1400 1000 600 Balance -517 300 -350 Weight 110.9 kg Intake: IV 725 600 250 Sodium Chloride 0.45% 1, 725 600 250 000 ml @ 50 mls/hr IV . Q20H LISA Rx#:[id number] Intake, IV Titration 158 Amount Labetalol 200 mg In 158 Sodium Chloride 0.9% 160 ml @ 2 MG/MIN 120 mls/hr IV .Q1H40M LISA Rx#: [id number] Oral 700 Output: Urine 1400 1000 600 Other: Voiding Method Urinal Urinal # Voids 0 0 1 - Exam MThe patient appeared well nourished and normally developed. Vital signs as documented. Head exam is unremarkable. No scleral icterus or corneal arcus noted. Neck is without jugular venous distension, thyromegaly, or carotid bruits. Carotid upstrokes are brisk bilaterally. Lungs are clear to auscultation and percussion. Cardiac exam reveals the PMI to be normally sized and situated. Rhythm is regular. First and second heart sounds normal. The second heart sound is split and there is an S3 gallop. No murmurs, rubs or gallops. Abdominal exam reveals normal bowel sounds, no masses, no organomegaly and no aortic enlargement. Extremities are nonedematous and both femoral and pedal pulses are normal.Examination of the skin revealed no evidence of significant rashes, suspicious appearing nevi or other concerning lesions. Neurologically patient is awake and alert and there is no focal neurological deficits. Subjectively, the patient reports vision changes and black visual goins in the upper and the lateral part of his vision. This is bilaterally and says been confirmed upon closing one eye and examining one eye at the time. Otherwise, no other neurologic deficits. No motor weakness. No headaches. No altered mentation. - Labs CBC & Chem 7: 10/09/19 04:49 10/09/19 04:49 Labs: Abnormal Lab Results - Last 24 Hours (Table) 10/08/19 10/08/19 10/09/19 Range/Units 12:00 12:30 04:49 RBC 3.65 L (4.30-5.90) m/uL Hgb 10.7 L (13.0-17.5) gm/dL Hct 33.1 L (39.0-53.0) % Plt Count 109 L (150-450) k/uL Sodium (137-145) mmol/L Carbon Dioxide (22-30) mmol/L BUN (9-20) mg/dL Creatinine (0.66-1.25) mg/dL Magnesium (1.6-2.3) mg/dL ALT (4-49) U/L Lactate Dehydrogenase 1554 H (313-618) U/L Creatine Kinase (55-170) U/L Total Protein (6.3-8.2) g/dL Albumin (3.5-5.0) g/dL Urine Protein 2+ H (Negative) Urine Blood Small H (Negative) Urine RBC 27 H (0-5) /hpf Urine Bacteria Rare H (None) /hpf 10/09/19 Range/Units 04:49 RBC (4.30-5.90) m/uL Hgb (13.0-17.5) gm/dL Hct (39.0-53.0) % Plt Count (150-450) k/uL Sodium 133 L (137-145) mmol/L Carbon Dioxide 20 L (22-30) mmol/L BUN 58 H (9-20) mg/dL Creatinine 3.67 H (0.66-1.25) mg/dL Magnesium 2.5 H (1.6-2.3) mg/dL ALT 55 H (4-49) U/L Lactate Dehydrogenase (313-618) U/L Creatine Kinase 612 H (55-170) U/L Total Protein 5.2 L (6.3-8.2) g/dL Albumin 2.9 L (3.5-5.0) g/dL Urine Protein (Negative) Urine Blood (Negative) Urine RBC (0-5) /hpf Urine Bacteria (None) /hpf Assessment and Plan Plan: 1 acute hypertensive emergency in a patient with known history of hypertension , and about pressure is under better control. The patient has several target organ damage related to this acute hypertensive emergency. Currently off the labetalol drip. 2 acute chest pain, with limited troponin leak, likely secondary to hypertensive emergency. I highly doubt a underlying non-STEMI. The chest pain is recovering and the patient is currently free of any chest pain for now. 3 acute diastolic heart failure related to hypertensive heart disease and the patient has severe concentric left ventricular hypertrophy. ProBNP level at time of admission was above 20,000 and the patient had small bilateral pleural effusion and interstitial edema. This is related to above. 4 acute kidney injury secondary to hypertensive emergency. Doubt mi croangiopathy although this remains a concern that the patient has developed also some anemia and thrombocytopenia in addition to an acute kidney injury. No altered mentation. No fever. No schistocytes on the peripheral smear. Watch for contrast nephropathy as the patient was given a CT angiogram and aortic dissection was ruled out. On today's evaluation, ultrasound of the kidneys was done. There is no evidence of any hydronephrosis. The renal arteries cannot be well visualized. The patient has some rise in his creatinine up to 3.6. The first on the case. 5 thrombocytopenia, improving 6 hyponatremia, improving 7 poor ompliance to blood pressure medications 8 questionable right-sided hydronephrosis 9 asymptomatic gallbladder distention without evidence of any cholecystitis 10 chronic back pain 11 excessive utilization of caffeinated beverages Plan BP control with a combination of Norvasc, metoprolol and hydralazine and the doses will be adjusted according to his blood pressure response. Hydralazine has been increased up to 100 mg by mouth 3 times a day Ultrasound the kidneys was noted Check metanephrine levels and his serum in addition to renin and aldosterone levels Echo was noted Monitor the renal function Continue gentle hydration with half-normal saline at the rate of 50 mL an hour Check UA Keep the patient ICU for 24 hours We'll continue to follow
--- NOTE | 2019-10-09 11:57 | P.PN ---
Subjective Patient is seen in follow-up for acute kidney injury. Creatinine 3.67 today. Blood pressure better controlled. Denies chest pain or shortness of breath. Good urine output. No hematuria. Vital signs are stable. General: The patient appeared well nourished and normally developed. HEENT: Head exam is unremarkable. Neck is without jugular venous distension. LUNGS: Lungs are clear to auscultation and percussion. Breath sounds decreased. HEART: Rate and Rhythm are regular. ABDOMEN: Soft, nontender. EXTREMITITES: No clubbing, cyanosis, or edema. Objective - Vital Signs Vital signs: Vital Signs Temp 98.3 F 10/09/19 04:00 Pulse 72 10/09/19 11:00 Resp 15 10/09/19 11:00 BP 149/85 10/09/19 11:00 Pulse Ox 94 L 10/09/19 11:00 Intake & Output 10/08/19 10/09/19 10/09/19 18:59 06:59 18:59 Intake Total 883 1300 250 Output Total 1400 1000 600 Balance -517 300 -350 Weight 110.9 kg Intake: IV 725 600 250 Sodium Chloride 0.45% 1, 725 600 250 000 ml @ 50 mls/hr IV . Q20H LISA Rx#:[id number] Intake, IV Titration 158 Amount Labetalol 200 mg In 158 Sodium Chloride 0.9% 160 ml @ 2 MG/MIN 120 mls/hr IV .Q1H40M [facility]ISA Rx#: [id number] Oral 700 Output: Urine 1400 1000 600 Other: Voiding Method Urinal Urinal # Voids 0 0 1 - Labs CBC & Chem 7: 10/09/19 04:49 10/09/19 04:49 Labs: Abnormal Lab Results - Last 24 Hours (Table) 10/08/19 10/08/19 10/08/19 Range/Units 12:00 12:00 12:30 RBC (4.30-5.90) m/uL Hgb (13.0-17.5) gm/dL Hct (39.0-53.0) % Plt Count (150-450) k/uL Haptoglobin 29.9 L (31.2-198.0) mg/dL Sodium (137-145) mmol/L Carbon Dioxide (22-30) mmol/L BUN (9-20) mg/dL Creatinine (0.66-1.25) mg/dL Magnesium (1.6-2.3) mg/dL ALT (4-49) U/L Lactate Dehydrogenase 1554 H (313-618) U/L Creatine Kinase (55-170) U/L Total Protein (6.3-8.2) g/dL Albumin (3.5-5.0) g/dL Urine Protein 2+ H (Negative) Urine Blood Small H (Negative) Urine RBC 27 H (0-5) /hpf Urine Bacteria Rare H (None) /hpf 10/09/19 10/09/19 Range/Units 04:49 04:49 RBC 3.65 L (4.30-5.90) m/uL Hgb 10.7 L (13.0-17.5) gm/dL Hct 33.1 L (39.0-53.0) % Plt Count 109 L (150-450) k/uL Haptoglobin (31.2-198.0) mg/dL Sodium 133 L (137-145) mmol/L Carbon Dioxide 20 L (22-30) mmol/L BUN 58 H (9-20) mg/dL Creatinine 3.67 H (0.66-1.25) mg/dL Magnesium 2.5 H (1.6-2.3) mg/dL ALT 55 H (4-49) U/L Lactate Dehydrogenase (313-618) U/L Creatine Kinase 612 H (55-170) U/L Total Protein 5.2 L (6.3-8.2) g/dL Albumin 2.9 L (3.5-5.0) g/dL Urine Protein (Negative) Urine Blood (Negative) Urine RBC (0-5) /hpf Urine Bacteria (None) /hpf Assessment and Plan Plan: assessment: 1. Hypertensive emergency. Better controlled. 2. Hypokalemia from diuresis. Better post replacement. 3. Hyponatremia secondary to acute kidney injury. Slightly hypervolemic. Improved. 4. History of hypertension. Noncompliant with his home medications for the last 3 months. 5. Acute kidney injury secondary to nephrosclerosis and nonsteroidal use. He also received IV contrast dye on October 06. No schistocytes noted on differential. Creatinine 3.67 today. Unknown baseline renal function. No hydronephrosis noted on kidney ultrasound. No evidence of renal artery stenosis. 6. Acute diastolic heart failure with severe LVH consistent with uncontrolled hypertension. Plan: Hep-Lock IV fluids. Follow-up renin and aldosterone levels, and plasma metanephrines. Maintain current antihypertensives. Dose of hydralazine increased today. Continue to monitor renal function and urine output. Discussed with the patient the importance of being compliant with this blood pressure medications.
[2019-10-09] MEDS ORDERED: NICOTINE POLACRILEX 2 MG GUM BUCCAL PRN (13:04)
--- NOTE | 2019-10-09 14:44 | PN ---
PROGRESS NOTE Hang is a 33-year-old gentleman who is admitted to hospital with severe uncontrolled hypertension and evidence of renal failure and left ventricular hypertrophy. Yesterday, his blood pressures were better controlled but this morning again the blood pressure is elevated. It was in the 150s to 180s, but has come down to 149/85. Symptoms oneill, he is doing better. Labs show a hemoglobin of 10.7. BUN is 58, creatinine is 3.6. Echocardiogram shows normal LV systolic function, enlarged right ventricle and moderate pulmonary hypertension with moderate mitral and tricuspid regurgitation. On exam today, heart rate is 72 beats a minute, blood pressure is 150/85, respiratory rate is 18. Chest exam reveals good air entry bilaterally. Heart exam reveals first and second heart sounds and an S4 is heard. Abdomen is soft. Exam of extremities did not reveal any edema. Peripheral pulses are felt. Labs show that the potassium is 3.8, BUN is 58, creatinine is 3.6. ASSESSMENT: 1. Severe uncontrolled hypertension. 2. Chronic renal failure. PLAN: I will increase the dose of hydralazine to 100 t.i.d., continue the Norvasc 10 mg daily and increase the Lopressor to 50 mg b.i.d. to more optimally control the blood pressure. We will decide on further course of action based on how the blood pressures evolve. MMODL / IJN: [id number] /
[2019-10-09] MEDS: cloNIDine HCL 0.1 MG TAB PO SCH ×2 (19:29→23:16)
[2019-10-09] MEDS: METOPROLOL TARTRATE 50 MG TAB PO SCH (21:09)
[2019-10-10] MEDS: hydrALAZINE HCL 50 MG TAB PO SCH ×4 (01:58→21:38)
[2019-10-10 06:34] LABS: Basophils % (A) 0 %; Eosinophils # (A) 0.3 k/uL (0-0.7); Eosinophils % (A) 5 %; HCT 32.6 % (39.0-53.0); HGB 10.4 gm/dL (13.0-17.5); Lymphocytes % (A) 14 %; MCH 29.4 pg (25.0-35.0); MCHC 31.9 g/dL (31.0-37.0); MCV 92.3 fL (80.0-100.0); Mean Platelet Volume 8.4; Monocytes # (A) 0.4 k/uL (0-1.0); Monocytes % (A) 5 %; Neutrophils # (A) 5.3 k/uL (1.3-7.7); Neutrophils % (A) 75 %; Platelet Count 124 k/uL (150-450); RBC 3.53 m/uL (4.30-5.90); RDW 14.8 % (11.5-15.5); WBC 7.1 k/uL (3.8-10.6)
[2019-10-10 06:44] LABS: Albumin 2.8 g/dL (3.5-5.0); Calcium 8.7 mg/dL (8.4-10.2); Magnesium 2.3 mg/dL (1.6-2.3); Potassium 3.8 mmol/L (3.5-5.1); Total Bilirubin 0.5 mg/dL (0.2-1.3); Total Protein 5.3 g/dL (6.3-8.2)
[2019-10-10] MEDS: METOPROLOL TARTRATE 50 MG TAB PO SCH ×2 (07:56→19:59)
[2019-10-10] MEDS: amLODIPine 10 MG TAB PO SCH (07:56)
[2019-10-10] MEDS: cloNIDine HCL 0.1 MG TAB PO SCH (07:56)
[2019-10-10] MEDS: PANTOPRAZOLE 40 MG/10 ML VIAL IV SCH (07:57)
[2019-10-10] MEDS: HEPARIN SODIUM,PORCINE 5,000 UNIT/ML 1 ML VIAL SQ SCH ×2 (07:57→16:10)
[2019-10-10] MEDS: MORPHINE SULFATE 4 MG/ML SYRINGE IV PRN ×4 (08:14→19:38)
[2019-10-10] MEDS ORDERED: LORazepam 2 MG/ML INJ IV STA (08:28)
--- NOTE | 2019-10-10 10:34 | P.PN ---
Subjective Progress Note Date: 10/10/19 This is a 33-year-old male patient who was admitted yesterday to the ICU via emergency because of an acute hypertensive emergency. The patient is known to have long history of hypertension, and he hasn't been compliant his blood pressure medication. He states that his been placed on today's blood pressure medication and most recent BP medication has been a ALEISHA inhibitor, lisinopril, which he quit taking approximately 6 weeks ago. Note that the patient also drinks excess amount of caffeinated beverages including those with energy drinks which are high in sugar and caffeine content and he drinks at least 7 or 8 out of them on a daily basis. He also drinks coffee. He denies substance abuse. Denies having to use of any cocaine or any other street drugs. The patient came into the emergency department yesterday complaining of progressive worsening shortness of breath over a few days duration in addition to generalized weakness and minimal cough. He also had some mild chest discomfort centrally where the pain was around 2 out of 10 in severity radiating to the back and the neck area and he was also having some headaches and numbness in his upper extremities bilaterally without having any weakness. No blurred vision. No slurred speech. No focal neurological deficits. He had no increased swelling in lower extremities. No previous history of DVT or pulmonary embolism. He does not smoke. He chews tobacco. His initial blood pressure in the ED was 280/160 and he was initially placed on nitroglycerin drip. After I was contacted, I recommended labetalol drip that was utilized throughout the night and it was discontinued approximately 11 PM yesterday in the emergency department as the patient's blood pressure responded nicely. Note that he had significant abnormalities in his blood work which included an abnormal renal function with a creatinine of 3.15, unsure if this is an acute or chronic. His CBC showed a component of thrombocytopenia with a platelet further dropped down to 91 this morning with a hemoglobin of 10.5 and a white cell count of 8.2K. The patient's proBNP level was 20,800. The patient had a CPK of 2155. LFTs have been within normal limits. D-dimer was at 2.3. Chest x-ray was consistent with CHF. EKG showed a sinus tachycardia with LVH. Based on all this, there was a concern of aortic dissection. The patient unfortunately was given a CT angiogram that showed no evidence of any dissection and aneurysm. There was better pleural effusion and interstitial edema consistent with CHF in addition to some cardiomegaly. There was also some questionable mild right-sided hydronephrosis on the ultrasound of the kidneys that showed no right-sided ureteral jets and there was also dilated gallbladder suggestive of cholecystitis. Nevertheless, the patient does not have any right upper quadrant pain, does not have any abnormalities in liver function tests. Based on the intake of contrast, I give the patient half-normal saline at rate of 75 mL an hour. Earlier this morning, I started the patient on Norvasc 10 mg and metoprolol 25 mg twice a day. Cardiology further so the patient and added hydralazine 50 mg every 8 hours. He is labetalol drip was again discontinued. Overall, is feeling better. Echocardiogram was done this morning and showed severe concentric LVH. LV function is been essentially within normal limits. No significant valvular abnormalities noted. No fever. No chills. No other complaints otherwise been altered mentation. On today's evaluation of 10/09/2019, the patient is being seen for a follow-up. We noted the patient's blood pressure was well-controlled till around 4 AM this morning with a blood pressure gradually went up. The patient has not taken his oral medication. At around 7:00 this morning, given a dose of labetalol 20 mg IV push. I asked the nurses to restart the oral medication which included a combination of metoprolol, hydralazine and Norvasc. BP is being monitored closely. Meanwhile, the patient reported some change in his vision. He was seeing dark black spots in the upper part of his visual goins bilaterally. For that reason, a CAT scan of the brain will be ordered to rule out the possibility of any stroke. Meanwhile, the patient is still being investigated regarding his hypertension. Serum metanephrine, renin and aldosterone levels are still pending for now. Ultrasound the kidneys was done looking for his underlying renal artery structures and rule out the possibility of stenosis. His creatinine today is around 3.6 and there is also concern of contrast nephropathy and the patient is receiving half-normal saline at the rate of 50 mL an hour. He is producing adequate amount of urine output. No chest pain. No palpitations. Echo was done and showed severe LVH and preserved LV function. Ultrasound of the kidneys showed no clear evidence of any renal artery stenosis. There was nondiagnostic in this regard. There was evidence of sludge within the gallbladder. The infrarenal abdominal aortic structures cannot be well visualized. Nevertheless, the patient a previous CAT scan of the abdomen and pelvis showing no significant abnormalities and the wart and this was a noncontrast study. On today's evaluation of 10/10/2019 the patient is still in the intensive care unit for hypertensive emergency. I noted that the patient's blood pressure was gradually high. He started going up as of 6 AM this morning and came up to 209/134 at around 8 AM. Subsequently, the patient was given his oral medication. This included a combination of metoprolol, hydralazine and Norvasc and clonidine was also added and I increased her dose up to 0.2 mg 3 times a day. The patient is having worsening in his vision. The patient is having worsening in his visual goins. CAT scan of the brain was done yesterday was negative. For that reason, a ordered an MRI of the brain I also consulted ophthalmology and neurology regarding this issue. No focal neurological deficits. No motor weakness. Her lower extremities. No headaches. No nausea. No vomiting. No emesis. No difficulty with balance. No altered mentation. He is showing some improvement in renal function. Creatinine is down to 3.2. He moves at 10.4. The platelet count is also improving. The serum renin level is normal at 39.5. Aldosterone level was elevated at 121. Awaiting serum m etanephrine levels. The findings on the case. Objective - Vital Signs Vital signs: Vital Signs Temp 97.9 F 10/10/19 08:00 Pulse 70 10/10/19 10:00 Resp 22 10/10/19 10:00 BP 121/70 10/10/19 10:00 Pulse Ox 96 10/10/19 10:00 Intake & Output 10/09/19 10/10/19 10/10/19 18:59 06:59 18:59 Intake Total 600 650 520 Output Total 600 1460 0 Balance 0 -810 520 Weight 108.4 kg Intake: IV 600 400 0 Sodium Chloride 0.45% 1, 600 400 0 000 ml @ 50 mls/hr IV . Q20H LISA Rx#:[id number] Oral 400 Tube Feeding 250 120 Output: Urine 600 1460 0 Other: Voiding Method Urinal Urinal Urinal # Voids 1 1 - Exam The patient appeared well nourished and normally developed. Vital signs as documented. Head exam is unremarkable. No scleral icterus or corneal arcus noted. Neck is without jugular venous distension, thyromegaly, or carotid bruits. Carotid upstrokes are brisk bilaterally. Lungs are clear to auscultation and percussion. Cardiac exam reveals the PMI to be normally sized and situated. Rhythm is regular. First and second heart sounds normal. The second heart sound is split and there is an S3 gallop. No murmurs, rubs or gallops. Abdominal exam reveals normal bowel sounds, no masses, no organomegaly and no aortic enlargement. Extremities are nonedematous and both femoral and pedal pulses are normal.Examination of the skin revealed no evidence of significant rashes, suspicious appearing nevi or other concerning lesions. Neurologically patient is awake and alert and there is no focal neurological deficits. Subjectively, the patient reports vision changes and black visual goins in the upper and the lateral part of his vision. This is bilaterally and says been confirmed upon closing one eye and examining one eye at the time. Otherwise, no other neurologic deficits. No motor weakness. No headaches. No altered mentation. 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 For now, the concern is that the patient is having some vision deficits. MRI of the brain was ordered. CAT scan of the brain done yesterday was negative. Awaiting a neurology and an ophthalmology consultation in both in place. I made adjustments in his blood pressure medication and after obtaining his morning meds his blood pressure improved for now. No focal neurological deficits.. 3 acute diastolic heart failure related to hypertensive heart disease and the patient has severe concentric left ventricular hypertrophy. ProBNP level at time of admission was above 20,000 and the patient had small bilateral pleural effusion and interstitial edema. This is related to above. The patient has no signs of any shortness of breath or signs of any fluid overload at this point in time. 4 acute kidney injury secondary to hypertensive emergency. Doubt microangiopathy although this remains a concern that the patient has developed also some anemia and thrombocytopenia in addition to an acute kidney injury. No altered mentation. No fever. No schistocytes on the peripheral smear. Watch for contrast nephropathy as the patient was given a CT angiogram and aortic dissection was ruled out. On today's evaluation, ultrasound of the kidneys was done. There is no evidence of any hydronephrosis. The renal arteries cannot be well visualized. The patient is improving. Creatinine is down to 3.28 on today's evaluation. Platelet counts is also improving. 5 thrombocytopenia, improving 6 hyponatremia, improving 7 poor compliance to blood pressure medications 8 questionable right-sided hydronephrosis 9 asymptomatic gallbladder distention without evidence of any cholecystitis 10 chronic back pain 11 excessive utilization of caffeinated beverages Plan BP control with a combination of Norvasc, metoprolol and hydralazine clonidine and the dose is adjusted. Awaiting serum metanephrine levels Serum renin level is within normal limits and aldosterone is elevated Monitor the renal function Continue gentle hydration with half-normal saline at the rate of 50 mL an hour Check UAAnd the patient has +2 protein and this is to be further worked up by nephrology. Keep the patient ICU for 24 hours We'll continue to follow
--- NOTE | 2019-10-10 11:18 | MR ---
EXAMINATION TYPE: MR brain wo con DATE OF EXAM: 10/10/2019 11:02 AM. COMPARISON: NONE. HISTORY: Visual change. Technique: Multiplanar, multiecho imaging of the brain was obtained without intravenous contrast. FINDINGS: Structures are unremarkable. There is a normal craniocervical junction. Echoplanar diffusion imaging is unremarkable. The orbits appear normal. There are normal vascular flow voids. There is no CP angle mass lesion. There is mild increased signal within the buzz likely secondary to mild layering degeneration. There are scattered punctate FLAIR lesions throughout the deep white matter tracts of both cerebral h emispheres. These are nonspecific and may be secondary to small vessel disease, hypertension, migrain e headaches, demyelination and Lyme's disease. There is no mass effect, midline shift or intracranial blood. IMPRESSION: 1. NO ACUTE INTRACRANIAL ABNORMALITY. 2. SCATTERED HIGH SIGNAL FLAIR LESIONS WITHIN THE WHITE MATTER TRACTS OF THE SPHENOID HEMISPHERES. TH FATOU ARE NONSPECIFIC. DIFFERENTIAL HAS BEEN GIVEN ABOVE.
[2019-10-10] MEDS ORDERED: TROPICAMIDE 1% OPHTH DROPS 2 ML BTL BOTH EYES SCH (15:45)
[2019-10-10] MEDS: SPIRONOLACTONE 25 MG TAB PO SCH (16:11)
[2019-10-10] MEDS: cloNIDine HCL 0.2 MG TAB PO SCH ×2 (16:14→21:37)
--- NOTE | 2019-10-10 16:16 | PN ---
PROGRESS NOTE Patient is seen for followup for uncontrolled hypertension and acute kidney injury. The patient has been complaining of visual changes. He feels like there is a dark cloud covering his eyes. He did go down for an MRI. Blood pressure is fairly controlled with systolic around 130s to 140s. However, this morning prior to medications, it was 209/134. Aldosterone renin levels came back, ratio was 3.0. The patient has just returned from MRI. PHYSICAL EXAMINATION: On examination today, blood pressure this morning was 121/70, heart rate 70 per minute, he is afebrile. Examination of the heart S1, S2. Examination of the lungs, decreased breath sounds at bases. Abdomen is soft, nontender. Examination of lower extremities shows no significant edema. MUSCULOSKELETAL PHYSIOTHERAPIST exam shows patient is moving all 4 extremities. He does have the visual changes as mentioned. LAB: Show sodium 137, potassium 3.8, chloride 110, CO2 is 19, BUN 58, serum creatinine 3.28, calcium of 8.7, albumin 2.8. UA shows 2+ protein, small blood, RBCs 27. Hemoglobin was 10.4 g/dL. ASSESSMENT: 1. Hypertension, uncontrolled on admission, currently much better controlled. Renal aldosterone level did not show an elevated ratio, however, given the hypokalemia patient will benefit from Aldactone. Once his renal function is stable, patient should be maintained on ALEISHA inhibitors/angiotensin receptor blockers as well. 2. Acute kidney injury with no evidence of obstructive uropathy with evidence of proteinuria and small hematuria on the UA. The patient had been on NSAIDs and received IV contrast, which will both contribute to his acute kidney injury as well. Renal function has improved. 3. Acute diastolic heart failure with severe LVH associated with uncontrolled hypertension. 4. Hypokalemia from diuresis, currently improved. 5. Hypertensive emergency. 6. Visual changes status post MRI. PLAN: Continue with the current medications. Add Aldactone and try to decrease clonidine down the road. Also, once renal function is stable add ALEISHA inhibitor/angiotensin receptor blockers. Neurology has been consulted as well. MMODL / IJN: [id number] /
--- NOTE | 2019-10-10 19:24 | CONS ---
CONSULTATION CHIEF COMPLAINT: Gradual diminution of vision in both eyes since he has high blood pressure. HISTORY OF PRESENT ILLNESS: The patient is admitted to the ICU due to uncontrolled blood pressure. The patient developed blurry vision in the last 2 days. Denies any history of feeling pressure or floaters or flashes. EYE EXAMINATION: Vision 20 over 200 both eyes with pinhole and reading. The patient was seen in the ICU. Extraocular motility full. Pupils shows sluggish reaction in the left eye, but no apparent pupillary defect. Intra-ocular pressure was measured 18 mmHg right eye and 20 mmHg left eye. Lens shows 2+ nuclear sclerosis. The vitreous shows a superficial vitreous hemorrhage over the left disk with cotton-wool spots on the posterior arcade with minimum retinal possible edema due to ischemia. ASSESSMENT: 1. Hypertensive retinopathy grade 4. 2. Possible ischemic optic neuritis associated with hypertension. PLAN: I advised baby aspirin once a day if his medical doctor approves that. Advised Voltaren eye drops 4 times a day, both eyes. The patient needs to see a retina specialist immediately after he can leave the ICU for possible injections in the vitreous. I will follow the patient closely. Thank you for the consultation. MMODL / IJN: [id number] /
[2019-10-10] MEDS: ASPIRIN 81 MG PO SCH (19:33)
[2019-10-10] MEDS: DICLOFENAC 0.1% OPHTH SOLN 2.5 ML BTL BOTH EYES SCH (21:39)
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
[2019-10-11] MEDS: HEPARIN SODIUM,PORCINE 5,000 UNIT/ML 1 ML VIAL SQ SCH ×4 (00:30→23:17)
[2019-10-11 05:23] LABS: Basophils % (A) 1 %; Eosinophils # (A) 0.3 k/uL (0-0.7); Eosinophils % (A) 7 %; HCT 31.5 % (39.0-53.0); HGB 10.4 gm/dL (13.0-17.5); Lymphocytes # (A) 1.3 k/uL (1.0-4.8); Lymphocytes % (A) 29 %; MCH 30.6 pg (25.0-35.0); MCV 92.5 fL (80.0-100.0); Mean Platelet Volume 8.6; Monocytes # (A) 0.3 k/uL (0-1.0); Monocytes % (A) 5 %; Neutrophils # (A) 2.7 k/uL (1.3-7.7); Neutrophils % (A) 57 %; Platelet Count 136 k/uL (150-450); RBC 3.41 m/uL (4.30-5.90); RDW 14.7 % (11.5-15.5); WBC 4.7 k/uL (3.8-10.6)
[2019-10-11 05:58] LABS: Calcium 8.8 mg/dL (8.4-10.2); Potassium 4.6 mmol/L (3.5-5.1)
[2019-10-11] MEDS: METOPROLOL TARTRATE 50 MG TAB PO SCH (07:37)
[2019-10-11] MEDS: ASPIRIN 81 MG PO SCH (07:37)
[2019-10-11] MEDS: hydrALAZINE HCL 50 MG TAB PO SCH ×3 (07:37→21:15)
[2019-10-11] MEDS: amLODIPine 10 MG TAB PO SCH (07:38)
[2019-10-11] MEDS: PANTOPRAZOLE 40 MG TABLET PO SCH (07:38)
[2019-10-11] MEDS: SPIRONOLACTONE 25 MG TAB PO SCH (07:38)
[2019-10-11] MEDS: DICLOFENAC 0.1% OPHTH SOLN 2.5 ML BTL BOTH EYES SCH ×3 (07:43→21:16)
[2019-10-11] MEDS: cloNIDine HCL 0.2 MG TAB PO SCH ×3 (07:43→21:15)
[2019-10-11] MEDS: MORPHINE SULFATE 4 MG/ML SYRINGE IV PRN ×4 (07:43→21:19)
--- NOTE | 2019-10-11 11:02 | P.PN ---
Subjective Progress Note Date: 10/11/19 This is a 33-year-old male patient who was admitted yesterday to the ICU via emergency because of an acute hypertensive emergency. The patient is known to have long history of hypertension, and he hasn't been compliant his blood pressure medication. He states that his been placed on today's blood pressure medication and most recent BP medication has been a ALEISHA inhibitor, lisinopril, which he quit taking approximately 6 weeks ago. Note that the patient also drinks excess amount of caffeinated beverages including those with energy drinks which are high in sugar and caffeine content and he drinks at least 7 or 8 out of them on a daily basis. He also drinks coffee. He denies substance abuse. Denies having to use of any cocaine or any other street drugs. The patient came into the emergency department yesterday complaining of progressive worsening shortness of breath over a few days duration in addition to generalized weakness and minimal cough. He also had some mild chest discomfort centrally where the pain was around 2 out of 10 in severity radiating to the back and the neck area and he was also having some headaches and numbness in his upper extremities bilaterally without having any weakness. No blurred vision. No slurred speech. No focal neurological deficits. He had no increased swelling in lower extremities. No previous history of DVT or pulmonary embolism. He does not smoke. He chews tobacco. His initial blood pressure in the ED was 280/160 and he was initially placed on nitroglycerin drip. After I was contacted, I recommended labetalol drip that was utilized throughout the night and it was discontinued approximately 11 PM yesterday in the emergency department as the patient's blood pressure responded nicely. Note that he had significant abnormalities in his blood work which included an abnormal renal function with a creatinine of 3.15, unsure if this is an acute or chronic. His CBC showed a component of thrombocytopenia with a platelet further dropped down to 91 this morning with a hemoglobin of 10.5 and a white cell count of 8.2K. The patient's proBNP level was 20,800. The patient had a CPK of 2155. LFTs have been within normal limits. D-dimer was at 2.3. Chest x-ray was consistent with CHF. EKG showed a sinus tachycardia with LVH. Based on all this, there was a concern of aortic dissection. The patient unfortunately was given a CT angiogram that showed no evidence of any dissection and aneurysm. There was better pleural effusion and interstitial edema consistent with CHF in addition to some cardiomegaly. There was also some questionable mild right-sided hydronephrosis on the ultrasound of the kidneys that showed no right-sided ureteral jets and there was also dilated gallbladder suggestive of cholecystitis. Nevertheless, the patient does not have any right upper quadrant pain, does not have any abnormalities in liver function tests. Based on the intake of contrast, I give the patient half-normal saline at rate of 75 mL an hour. Earlier this morning, I started the patient on Norvasc 10 mg and metoprolol 25 mg twice a day. Cardiology further so the patient and added hydralazine 50 mg every 8 hours. He is labetalol drip was again discontinued. Overall, is feeling better. Echocardiogram was done this morning and showed severe concentric LVH. LV function is been essentially within normal limits. No significant valvular abnormalities noted. No fever. No chills. No other complaints otherwise been altered mentation. On today's evaluation of 10/09/2019, the patient is being seen for a follow-up. We noted the patient's blood pressure was well-controlled till around 4 AM this morning with a blood pressure gradually went up. The patient has not taken his oral medication. At around 7:00 this morning, given a dose of labetalol 20 mg IV push. I asked the nurses to restart the oral medication which included a combination of metoprolol, hydralazine and Norvasc. BP is being monitored closely. Meanwhile, the patient reported some change in his vision. He was seeing dark black spots in the upper part of his visual goins bilaterally. For that reason, a CAT scan of the brain will be ordered to rule out the possibility of any stroke. Meanwhile, the patient is still being investigated regarding his hypertension. Serum metanephrine, renin and aldosterone levels are still pending for now. Ultrasound the kidneys was done looking for his underlying renal artery structures and rule out the possibility of stenosis. His creatinine today is around 3.6 and there is also concern of contrast nephropathy and the patient is receiving half-normal saline at the rate of 50 mL an hour. He is producing adequate amount of urine output. No chest pain. No palpitations. Echo was done and showed severe LVH and preserved LV function. Ultrasound of the kidneys showed no clear evidence of any renal artery stenosis. There was nondiagnostic in this regard. There was evidence of sludge within the gallbladder. The infrarenal abdominal aortic structures cannot be well visualized. Nevertheless, the patient a previous CAT scan of the abdomen and pelvis showing no significant abnormalities and the wart and this was a noncontrast study. On today's evaluation of 10/10/2019 the patient is still in the intensive care unit for hypertensive emergency. I noted that the patient's blood pressure was gradually high. He started going up as of 6 AM this morning and came up to 209/134 at around 8 AM. Subsequently, the patient was given his oral medication. This included a combination of metoprolol, hydralazine and Norvasc and clonidine was also added and I increased her dose up to 0.2 mg 3 times a day. The patient is having worsening in his vision. The patient is having worsening in his visual goins. CAT scan of the brain was done yesterday was negative. For that reason, a ordered an MRI of the brain I also consulted ophthalmology and neurology regarding this issue. No focal neurological deficits. No motor weakness. Her lower extremities. No headaches. No nausea. No vomiting. No emesis. No difficulty with balance. No altered mentation. He is showing some improvement in renal function. Creatinine is down to 3.2. He moves at 10.4. The platelet count is also improving. The serum renin level is normal at 39.5. Aldosterone level was elevated at 121. Awaiting serum m etanephrine levels. The findings on the case. On 10/11/2019, the patient is being seen for a follow-up. BP is under better control with a combination of medications. The patient is utilizing a c ombination of metoprolol, hydralazine, Norvasc and clonidine. He was having difficulties with his vision. Consulted ophthalmology and the patient was diagnosed having hypertensive retinopathy grade 4. Recent examination, the intraocular pressures were nonelevated. The vitreous showed a superficial hemorrhage over the left disc with cotton-wool spots in the posterior arcade with minimal retinal edema due to ischemia. MRI of the brain showed no evidence of any acute intracranial abnormality. There was scattered areas of flare lesion within the white matter tracts of the cerebral hemispheres. This was a nonspecific finding. Meanwhile, the patient is still being monitored in regards to his blood pressure. His creatinine is unchanged at 3.2. Rest of the blood work and electrodes are all within normal limits and does have a component of non-anion gap metabolic acidosis with a serum bicarb of 19. No shortness of breath. No chest pain. No altered mentation. Aldactone was added by nephrology. Objective - Vital Signs Vital signs: Vital Signs Temp 98.0 F 10/11/19 08:00 Pulse 63 10/11/19 09:00 Resp 21 10/11/19 09:00 BP 144/94 10/11/19 09:00 Pulse Ox 94 L 10/11/19 09:00 Intake & Output 10/10/19 10/11/19 10/11/19 18:59 06:59 18:59 Intake Total 1120 220 250 Output Total 300 1310 Balance 820 -1090 250 Weight 107.2 kg Intake: IV 0 0 Sodium Chloride 0.45% 1, 0 0 000 ml @ 50 mls/hr IV . Q20H LISA Rx#:[id number] Oral 400 250 Tube Feeding 720 220 Output: Urine 300 1310 Other: Voiding Method Urinal Urinal Urinal # Voids 1 1 # Bowel Movements 1 - Exam The patient appeared well nourished and normally developed. Vital signs as documented. Head exam is unremarkable. No scleral icterus or corneal arcus noted. Neck is without jugular venous distension, thyromegaly, or carotid bruits. Carotid upstrokes are brisk bilaterally. Lungs are clear to auscultation and percussion. Cardiac exam reveals the PMI to be normally sized and situated. Rhythm is regular. First and second heart sounds normal. The second heart sound is split and there is an S3 gallop. No murmurs, rubs or gallops. Abdominal exam reveals normal bowel sounds, no masses, no organomegaly and no aortic enlargement. Extremities are nonedematous and both femoral and pedal pulses are normal.Examination of the skin revealed no evidence of significant rashes, suspicious appearing nevi or other concerning lesions. Neurologically patient is awake and alert and there is no focal neurological deficits. Subjectively, the patient reports vision changes and black visual goins in the upper and the lateral part of his vision. This is bilaterally and says been confirmed upon closing one eye and examining one eye at the time. Otherwise, no other neurologic deficits. No motor weakness. No headaches. No altered mentation. - Labs CBC & Chem 7: 10/11/19 04:30 10/11/19 04:30 Labs: Abnormal Lab Results - Last 24 Hours (Table) 10/11/19 10/11/19 Range/Units 04:30 04:30 RBC 3.41 L (4.30-5.90) m/uL Hgb 10.4 L (13.0-17.5) gm/dL Hct 31.5 L (39.0-53.0) % Plt Count 136 L (150-450) k/uL Sodium 136 L (137-145) mmol/L Chloride 110 H (98-107) mmol/L Carbon Dioxide 19 L (22-30) mmol/L BUN 62 H (9-20) mg/dL Creatinine 3.20 H (0.66-1.25) mg/dL Assessment and Plan Plan: 1 acute hypertensive emergency with ongoing issues with elevated blood pressure in the automatic clipper hours. For now, the concern is that the patient is having some vision deficits. MRI of the brain was showing no acute intracranial abnormalities and there are some nonspecific white matter changes. Nevertheless, the ophthalmologic examination revealed stage IV hypertensive retinopathy and possible ischemic optic neuritis associated with hypertension. The patient had secondary vision changes in both eyes and the recommendation was to follow with a retina specialist and the patient was started on Voltaren eyedrops 4 times a day. The patient possibly may need injection to his vitreous. In any rate, BP is under better control for now. Other target organ damage includes hypertensive heart disease, severe LVH and addition to possibility of hypertensive nephrosclerosis and the patient's creatinine is stable at 3.2. 3 acute diastolic heart failure related to hypertensive heart disease and the patient has severe concentric left ventricular hypertrophy. ProBNP level at time of admission was above 20,000 and the patient had small bilateral pleural effusion and interstitial edema. This is related to above. The patient has no signs of any shortness of breath or signs of any fluid overload at this point in time. 4 acute kidney injury secondary to hypertensive emergency versus chronic kidney failure. Doubt microangiopathy although this remains a concern that the patient has developed also some anemia and thrombocytopenia in addition to an acute kidney injury. No altered mentation. No fever. No schistocytes on the peripheral smear. Watch for contrast nephropathy as the patient was given a CT angiogram and aortic dissection was ruled out. On today's evaluation, ultrasound of the kidneys was done. There is no evidence of any hydronephrosis. The renal arteries cannot be well visualized. The patient is improving. Creatinine is down to 3.28 on today's evaluation. Platelet counts is also improving. 5 thrombocytopenia, improving 6 hyponatremia, improving 7 poor compliance to blood pressure medications 8 questionable right-sided hydronephrosis 9 asymptomatic gallbladder distention without evidence of any cholecystitis 10 chronic back pain 11 excessive utilization of caffeinated beverages 12 hypertensive retinopathy, stage IV with secondary impairment in the vision Plan BP control with a combination of Norvasc, metoprolol and hydralazine clonidine and Aldactone Awaiting serum metanephrine levels Monitor renal function Monitor blood pressure Follow-up with ophthalmology Voltaren eyedrops May transfer to medical surgical floor.
--- NOTE | 2019-10-11 14:20 | PN ---
PROGRESS NOTE Mr. Shields is a 33-year-old gentleman who was admitted to the hospital with renal failure and uncontrolled hypertension. The patient is on multiple medications. His blood pressure is better, but still not well controlled. The patient is clinically doing well, except complaining of visual field defects. The patient was seen by university lecturer yesterday and recommended eye drops and continued management of high blood pressure. Further followup as an outpatient. Denies any chest pain or shortness of breath. His blood pressure this morning is about 140/105, pulse rate is about 65, respiration of 20. LAB VALUES: Today showed a hemoglobin of 10.4, white count is 4.7, electrolytes are within normal limits. His kidney functions seem to be improving. His creatinine has come down to 3.2. Clinically, lungs appear to be clear. Heart is regular. PLANS: I will increase the dose of the beta ihsan to 50 mg p.o. t.i.d. If the blood pressure is not well controlled, consider changing the metoprolol to labetalol. Continue rest of the medications. Further recommendations depend upon the clinical course. MMODL / IJN: [id number] /
--- NOTE | 2019-10-11 14:55 | PN ---
PROGRESS NOTE Patient is seen for followup for uncontrolled hypertension, hypertensive emergency and acute kidney injury. Serum creatinine has stayed around 3.1-3.2 mg/dL during this hospitalization. We do not have any previous labs available for comparison. This looks mostly like chronic kidney disease. The patient's blood pressure is better controlled. His visual symptoms seem to have improved slightly as well. He was evaluated by ophthalmology and scheduled to see a retinal specialist post discharge. MRI of the brain did not show any specific findings. EXAMINATION: Today blood pressure was 144/94, heart rate 63 per minute. He is afebrile. Exam reveals patient is euvolemic. No evidence of edema lower extremities. Abdomen is soft, nontender. Lab show sodium 136, potassium 4.6, chloride 110, CO2 is 19, BUN 62, creatinine 3.2, hemoglobin 10.4 g/dL. ASSESSMENT: 1. Chronic kidney disease with underlying proteinuria with no change in renal function since hospitalization. I will obtain serologies for workup for the proteinuria. However, this could all be related to the uncontrolled hypertension, which has been long-standing. Currently patient is at stage IV. 2. Hypertensive emergency. Blood pressure currently better controlled, started Aldactone as well. 3. Hypokalemia, status post replacement, improved with Aldactone as well. 4. Visual changes, awaiting neurology input. MRI of the brain did not show any major defects. Nonspecific changes were noted. Continue to maintain good blood pressure controlled. PLAN: Check baseline serologies for workup of proteinuria and quantify proteinuria and continue to avoid nephrotoxic agents. MMODL / IJN: [id number] /
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
[2019-10-11] MEDS ORDERED: METOPROLOL TARTRATE 50 MG TAB PO SCH (22:00)
[2019-10-12 04:26] LABS: Basophils % (A) 0 %; Eosinophils # (A) 0.3 k/uL (0-0.7); Eosinophils % (A) 7 %; HCT 31.5 % (39.0-53.0); HGB 10.5 gm/dL (13.0-17.5); Lymphocytes # (A) 1.2 k/uL (1.0-4.8); Lymphocytes % (A) 29 %; MCH 31.1 pg (25.0-35.0); MCHC 33.2 g/dL (31.0-37.0); MCV 93.6 fL (80.0-100.0); Mean Platelet Volume 8.4; Monocytes # (A) 0.2 k/uL (0-1.0); Monocytes % (A) 5 %; Neutrophils # (A) 2.4 k/uL (1.3-7.7); Neutrophils % (A) 57 %; Platelet Count 155 k/uL (150-450); RBC 3.36 m/uL (4.30-5.90); RDW 14.7 % (11.5-15.5); WBC 4.3 k/uL (3.8-10.6)
[2019-10-12 04:43] LABS: Calcium 8.9 mg/dL (8.4-10.2); Potassium 4.6 mmol/L (3.5-5.1)
[2019-10-12] MEDS: MORPHINE SULFATE 4 MG/ML SYRINGE IV PRN ×2 (07:55→11:54)
[2019-10-12] MEDS: HEPARIN SODIUM,PORCINE 5,000 UNIT/ML 1 ML VIAL SQ SCH (07:56)
[2019-10-12] MEDS: ASPIRIN 81 MG PO SCH (08:00)
[2019-10-12] MEDS: cloNIDine HCL 0.2 MG TAB PO SCH (08:00)
[2019-10-12] MEDS: PANTOPRAZOLE 40 MG TABLET PO SCH (08:00)
[2019-10-12] MEDS: amLODIPine 10 MG TAB PO SCH (08:00)
[2019-10-12] MEDS: SPIRONOLACTONE 25 MG TAB PO SCH (08:00)
[2019-10-12] MEDS: hydrALAZINE HCL 50 MG TAB PO SCH (08:01)
[2019-10-12] MEDS: DICLOFENAC 0.1% OPHTH SOLN 2.5 ML BTL BOTH EYES SCH (08:05)
[2019-10-12] MEDS ORDERED: METOPROLOL TARTRATE 50 MG TAB PO SCH (09:00)
[2019-10-12 10:41] VITALS: TEMP 98.7
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
--- NOTE | 2019-10-12 13:58 | P.PN ---
Subjective Progress Note Date: 10/12/19 Principal diagnosis: Acute hypertensive emergency On 10/11/2019, the patient is being seen for a follow-up. BP is under better control with a combination of medications. The patient is utilizing a combination of metoprolol, hydralazine, Norvasc and clonidine. He was having difficulties with his vision. Consulted ophthalmology and the patient was diagnosed having hypertensive retinopathy grade 4. Recent examination, the intraocular pressures were nonelevated. The vitreous showed a superficial hemorrhage over the left disc with cotton-wool spots in the posterior arcade with minimal retinal edema due to ischemia. MRI of the brain showed no evidence of any acute intracranial abnormality. There was scattered areas of flare lesion within the white matter tracts of the cerebral hemispheres. This was a nonspecific finding. Meanwhile, the patient is still being monitored in regards to his blood pressure. His creatinine is unchanged at 3.2. Rest of the blood work and electrodes are all within normal limits and does have a component of non-anion gap metabolic acidosis with a serum bicarb of 19. No shortness of breath. No chest pain. No altered mentation. Aldactone was added by nephrology. Patient was reevaluated today on 10/12/19, patient is doing well from the pulmonary perspective, no shortness of breath no cough no wheezing. His blood pressure seems to be better controlled, however patient continues to have difficulty with his vision, and he was diagnosed as having hypertensive retinopathy grade 4, and he was found to have superficial hemorrhage in the vitreous humor. Eventually the patient will need to be seen by a retina specialist. I have discussed this issue with the admitting physician, and from our perspective the patient could be transferred out of the ICU to a regular medical floor. The hospitalist is considering referral to [facility] for retina evaluation by retina specialist. Labs were reviewed, creatinine still elevated at 3.33. Objective - Vital Signs Vital signs: Vital Signs Temp 98.7 F 10/12/19 08:00 Pulse 62 10/12/19 12:00 Resp 29 H 10/12/19 12:00 BP 128/88 10/12/19 12:00 Pulse Ox 99 10/12/19 12:00 Intake & Output 10/11/19 10/12/19 10/12/19 18:59 06:59 18:59 Intake Total 1350 670 520 Output Total 8686 277 6427 Balance 150 -250 -1040 Weight 109.2 kg Intake: Oral 1350 670 520 Output: Urine 4520 [id number] [id number] Other: Voiding Method Urinal Urinal # Voids 1 1 # Bowel Movements 1 - Exam Physical Exam: Revealed a 33-year-old white male in no distress. Head: Atraumatic normocephalic. HEENT:[Neck is supple.] [No neck masses.] [No thyromegaly.] [No JVD.] Chest: [Clear throughout, no crackles, no rhonchi, no wheezes.] Cardiac Exam: [Normal S1 and S2, no S3 gallop, no murmur.] Abdomen: [Soft, nontender, no megaly, no rebound, no guarding, normal bowel sounds.] Extremities: [No clubbing, no edema, no cyanosis.] Neurological Exam: [No focal neurologic deficit. Alert and oriented 3. Psychiatric: Normal mood, affect and normal mental status examination. Skin: No rashes.] - Labs CBC & Chem 7: 10/12/19 03:41 10/12/19 03:41 Labs: Abnormal Lab Results - Last 24 Hours (Table) 10/11/19 10/12/19 10/12/19 Range/Units 17:36 03:41 03:41 RBC 3.36 L (4.30-5.90) m/uL Hgb 10.5 L (13.0-17.5) gm/dL Hct 31.5 L (39.0-53.0) % BUN 59 H (9-20) mg/dL Creatinine 3.33 H (0.66-1.25) mg/dL U Random Total Protein 58 H (<12) mg/dL Assessment and Plan Assessment: Impression: Acute hypertensive emergency Acute diastolic congestive heart failure Acute kidney injury secondary to hypertensive emergency Hypertensive retinopathy Recommendation: Will recommend transferring the patient out of the ICU. Continue present blood pressure medications. Consider referral to [facility] regarding his retinopathy Discussed his condition with the hospitalist Dr. woodward on the case. Will follow on when necessary basis. Time with Patient: Less than 30
[2019-10-12 14:03] LABS: Anti-DNA, DS unit <1.0 IU/mL; DNA Double-Stranded NEGATIVE (NEGATIVE)
[2019-10-12 14:04] LABS: Hepatitis B Surface AB- Quant 75.4 mIU/mL; Hepatitis B Surface Antibody Reactive (Non-Reactive); Hepatitis B Surface Antigen Non-Reactive (Non-Reactive); Hepatitis C IgG Antibody Non-Reactive (Non-Reactive)
[2019-10-12 15:05] VITALS: BP 123/75; PULSE 66; RESP 15
--- NOTE | 2019-10-12 15:26 | PN ---
PROGRESS NOTE Hang is a 33-year-old gentleman who was admitted to hospital with severe uncontrolled hypertension with hypertensive emergency, had evidence of end-organ damage in the form of renal failure. His blood pressures were difficult to control and his medications have been gradually increased. He is currently on Norvasc 10 mg daily, Catapres 0.2 mg 3 times a day, hydralazine 100 mg 3 times a day and metoprolol 50 mg b.i.d. along with metoprolol 50 mg b.i.d. The patient is also on Aldactone. Patient developed visual symptoms during this hospitalization and has been evaluated by an cage shift manager who found that he has significant hypertensive retinopathy and evidence of superficial vitreous hemorrhage over the left. It is also felt that patient may have that was mainly with hypertension. The visual issues are currently addressed by the cage shift manager and the ethylbenzene oxidizer. From cardiac standpoint, patient does not have any chest pain, is not in overt heart failure and blood pressures are well controlled on the medications that he is currently on. The patient had an echocardiogram on this admission that revealed concentric left ventricular hypertrophy with normal LV systolic function, enlarged right ventricle, mitral and tricuspid regurgitation and evidence of pulmonary hypertension. PHYSICAL EXAM: Heart rate is 60 beats per minute. Blood pressure is 133/89, respiratory rate is 18, O2 saturation is 96% on room air. There is no jugular venous distention. Chest exam reveals good air entry bilaterally. Heart exam reveals first and second heart sounds. Respiratory rate is fair. Abdomen is soft. Exam of the extremities did not reveal any edema. LABS: Show a hemoglobin of 10.5, potassium is 4.6, creatinine is 3.3. ASSESSMENT: 1. Severe uncontrolled hypertension. 2. Visual changes with a grade 4 retinopathy. PLAN: I will continue current medications. The patient had been worked up for secondary hypertension. Labs at this time are pending. Patient is on Aldactone as per Nephrology. Patient may be transferred to [facility] care. MMODL / IJN: [id number] /
--- NOTE | 2019-10-12 21:56 | PN ---
PROGRESS NOTE Patient is seen for followup for acute kidney injury and uncontrolled hypertension. Serum creatinine has been staying at about 3.2 to 3.3 mg/dL. We do not have a prior creatinine for baseline renal function. Patient does have proteinuria, and therefore serological workup was ordered, which is so far all negative. Patient has had visual changes and he is being transferred to a tertiary care center for evaluation by a retinal specialist. MRI of the brain did not show any specific findings. On examination today, patient is comfortable. Blood pressure was 140/96, heart rate 70 per minute. He is afebrile. Examination shows he is euvolemic. No evidence of edema in lower extremities. Abdomen is soft, non-tender. INTERVENTION TEACHER exam grossly intact except for the visual changes. Labs from today show sodium 137, potassium 4.6, chloride 107, BUN 59, creatinine 3.3, hemoglobin 10.5 g/dL. ASSESSMENT: 1. Chronic kidney disease, stage IV, mostly secondary to nephrosclerosis with proteinuria, with all serologies currently negative. There may be a component of acute kidney injury secondary to ATN. However, renal function has stayed the same for about 3 days now. Creatinine improved slightly from 3.6 to 3.2 and 3.3 now. Patient will need followup as outpatient 1 to 2 weeks post discharge. 2. Visual changes, mostly associated with uncontrolled hypertension, currently being transferred for further evaluation. 3. Hypertensive emergency. Blood pressure is better controlled. 4. Proteinuria. Serological workup has been ordered. So far all serologies are negative. PLAN: Followup as outpatient once patient is discharged home. He will need to follow up for CKD and hypertension. MMODL / IJN: [id number] /
[2019-10-13 15:00] LABS: C-ANCA <1:20 Titer (<1:20)
--- NOTE | 2019-10-13 15:53 | CDI ---
Documentation Clarification Form Date: 10/13/19 From: Patti Mclean CCS Phone: If you have a question about this query, please contact Rossi Merrill, Chemical Processing Technician at [phone] between 8am and 5pm. Admit Date: 10/07/19 Discharge Date:10/12/19 Patient Name: Hang Shields Visit Number: [id number] ATTENTION: The Clinical Documentation Specialists (CDI) and [facility] Coding Staff appreciate your assistance in clarifying documentation. Please respond to the clarification below the line at the bottom and electronically sign. The CDI & [facility] Coding staff will review the response and follow-up if needed. Please note: Queries are made part of the Legal Health Record. If you have any questions, please contact the author of this message via ITS. Dear Dr. Rodas, Patient presented with troponin of: 0.605, 0.590 Patient history/risk factors: CHF, HTN, DIANNA, PHTN, Obesity Clinical indicators: Chest pain, Elevated troponin Treatment: Heparin 5,000 unit SQ Q 8HR In your professional opinion, can you please specify the diagnosis, if any, indicated by the above clinical indicators and treatment? Type II IN NSTEMI Elevated Troponin Other, please specify Unable to determine Unable to determine, please refer to cardiology input thank you ARELY
[2019-10-14 16:38] LABS: Metanephrine, Free 87 pg/mL (< OR = 57); Normetanephrine, Free 130 pg/mL (< OR = 148); Total, Free (MN + NMN) 217 pg/mL (< OR = 205)
== END 2019-10-12 16:11 | disposition short-term general hospital (02) | DRG 304 ==
LOC: EC 19:22 → 2SICU 21:51
PROVIDERS: ADMIT Internal Medicine; ATTEND Internal Medicine
DX: I16.1 Hypertensive emergency (principal); I50.31 Acute diastolic (congestive) heart failure; N17.0 Acute kidney failure with tubular necrosis; E87.2 Acidosis; E87.1 Hypo-osmolality and hyponatremia; N13.30 Unspecified hydronephrosis; I42.8 Other cardiomyopathies; I13.0 Hypertensive heart and chronic kidney disease with heart failure and stage 1 through stage 4 chronic kidney disease, or unspecified chronic kidney disease; Z11.59 Encounter for screening for other viral diseases; D69.6 Thrombocytopenia, unspecified; I27.29 Other secondary pulmonary hypertension; H43.12 Vitreous hemorrhage, left eye; H35.033 Hypertensive retinopathy, bilateral; E87.6 Hypokalemia; R00.0 Tachycardia, unspecified; F17.200 Nicotine dependence, unspecified, uncomplicated; F43.10 Post-traumatic stress disorder, unspecified; M54.9 Dorsalgia, unspecified; G89.29 Other chronic pain; E66.9 Obesity, unspecified; K82.8 Other specified diseases of gallbladder; H53.8 Other visual disturbances; I08.1 Rheumatic disorders of both mitral and tricuspid valves; N18.9 Chronic kidney disease, unspecified; R80.9 Proteinuria, unspecified; R20.0 Anesthesia of skin; R79.89 Other specified abnormal findings of blood chemistry; Z68.33 Body mass index [BMI] 33.0-33.9, adult; Z79.899 Other long term (current) drug therapy; Z91.14 Patient's other noncompliance with medication regimen; Z87.828 Personal history of other (healed) physical injury and trauma; Z82.49 Family history of ischemic heart disease and other diseases of the circulatory system; Z82.3 Family history of stroke
CPT/HCPCS: 36415; 70450; 70551; 71045; 71275; 74176; 76770; 76775; 80048; 80053; 80061; 81001; 82088; 82550; 82570; 82728; 83010; 83036; 83615; 83690; 83735; 83835; 83880; 84156; 84244; 84443; 84484; 85025; 85379; 85610; 85730; 86038; 86140; 86160; 86225; 86255; 86334; 86335; 86706; 86803; 87340; 87635; 93005; 93306; 93975; 96361; 96365; 96375; 96376; 99291